=== PATIENT | female | born 1985 | race Caucasian/White ===

== ENCOUNTER → 2018-08-22 19:31 | Outpatient (REF) | payer OTHER, SELFPAY ==
[2018-08-22 19:59] LABS: Basophils # 0.1 K/mm3 (0-0.2); Basophils % 0.5 % (0.1-2.0); Eosinophils # 0.2 K/mm3 (0.0-0.4); Eosinophils % 1.9 % (0.1-12.0); Hematocrit 42.6 % (37.0-47.0); Hemoglobin 14.5 g/dL (12.2-16.2); Lymphocytes # 1.6 K/mm3 (0.7-4.5); Lymphocytes % 15.6 K/mm3 (10-50); Mean Corpuscular Volume 85.2 fl (81-99); Mean Platelet Volume 9.2 fl (7.4-10.4); Monocytes # 0.4 K/mm3 (0.1-1.0); Monocytes % 4.2 % (1.7-9.3); Neutrophils # 7.9 K/mm3 (1.8-7.8); Neutrophils % 77.8 % (37.0-80.0); Platelet Count 246 K/mm3 (142-424); Red Cell Distribution Width 12.3 % (11.5-17.5); White Blood Count 10.2 K/mm3 (4.8-10.8)
[2018-08-22 20:46] LABS: Alanine Aminotransferase 75 U/L (12-78); Albumin Level 4.7 gm/dL (3.4-5.0); Albumin/Globulin Ratio 1.5 (1.1-1.8); Alkaline Phosphatase 96 U/L (46-116); Anion Gap 18.7 mEq/L (5-15); Aspartate Amino Transferase 42 U/L (15-37); Bilirubin,Total 0.4 mg/dL (0.2-1.0); Blood Urea Nitrogen 21 mg/dL (7-18); Calcium 9.2 mg/dL (8.5-10.1); Carbon Dioxide 23 mmol/L (21.0-32.0); Chloride 101 mmol/L (98-107); Chol/HDL Ratio 3.1 (1-3.5); Cholesterol 217 mg/dL (140-200); Creatinine,Serum 0.67 mg/dL (0.55-1.02); Estimated Glomerular Filt Rate 103 ml/min (>60); GFR (African American) 125 ML/MIN (>60); Globulin 3.2 gm/dl (1.3-3.2); Glucose 58 mg/dL (74-106); HDL Cholesterol 71 mg/dL (29-89); LDL Cholesterol 128 mg/dL (0-130); Potassium 3.7 mmoL/L (3.5-5.1); Sodium 139 mmol/L (136-145); T4 (Thyroxine) 10.1 ug/dl (4.7-13.3); Thyroid Stimulating Hormone 0.88 uIU/ml (0.358-3.740); Total Protein,Serum 7.9 gm/dL (6.4-8.2); Triglycerides 92 mg/dL (30-200); VLDL Cholesterol 18 mg/dL (0-40)
[2018-08-22 20:58] LABS: Hemoglobin A1C 5.1 % (0.0-7.0)
[2018-08-25 09:27] LABS: Vitamin D 25 Hydroxy 36.7 ng/mL (30.0-100.0)
== END ==
LOC: LAB 19:31
PROVIDERS: PCP Physician Assistant; Visit Provider Physician Assistant
DX: Z86.32 Personal history of gestational diabetes (principal)
CPT/HCPCS: 80053; 80061; 82652; 83036; 84436; 84443; 85025

== ENCOUNTER → 2019-04-10 14:17 | Outpatient (CLI) | payer OTHER, SELFPAY ==
[2019-04-10 16:02] LABS: Alanine Aminotransferase 29 U/L (12-78); Albumin Level 4.4 gm/dL (3.4-5.0); Albumin/Globulin Ratio 1.4 (1.1-1.8); Alkaline Phosphatase 70 U/L (46-116); Anion Gap 16.8 mEq/L (5-15); Aspartate Amino Transferase 18 U/L (15-37); Bilirubin,Total 0.5 mg/dL (0.2-1.0); Blood Urea Nitrogen 16 mg/dL (7-18); Calcium 8.9 mg/dL (8.5-10.1); Carbon Dioxide 21 mmol/L (21.0-32.0); Chloride 106 mmol/L (98-107); Creatinine,Serum 0.68 mg/dL (0.55-1.02); Estimated Glomerular Filt Rate 101 ml/min (>60); GFR (African American) 122 ML/MIN (>60); Globulin 3.1 gm/dl (1.3-3.2); Glucose 81 mg/dL (74-106); HCG,Quantitative 0 mIU/mL; Potassium 3.8 mmoL/L (3.5-5.1); Sodium 140 mmol/L (136-145); Total Protein,Serum 7.5 gm/dL (6.4-8.2)
[2019-04-16 06:22] LABS: H. pylori Breath Test Negative (Negative)
== END ==
PROVIDERS: Visit Provider Nurse Practitioner Family
DX: R53.83 Other fatigue (principal); R10.9 Unspecified abdominal pain; R11.0 Nausea
CPT/HCPCS: 36415; 80053; 83013; 84702

== ENCOUNTER → 2019-12-16 16:56 | Outpatient (CLI) | payer MEDICAID, SELFPAY ==
[2019-12-16 17:58] LABS: Basophils # 0.1 K/mm3 (0-0.2); Eosinophils # 0.2 K/mm3 (0.0-0.4); Eosinophils % 2.4 % (0.1-12.0); Hemoglobin 14.3 g/dL (12.2-16.2); Lymphocytes # 1.8 K/mm3 (0.7-4.5); Lymphocytes % 24.9 % (10-50); Mean Corpuscular HGB Conc 34.1 g/dL (31.8-35.4); Mean Corpuscular Hemoglobin 29.5 pg (27.0-31.2); Mean Corpuscular Volume 86.6 fl (81-99); Mean Platelet Volume 9.8 fl (7.4-10.4); Monocytes # 0.4 K/mm3 (0.1-1.0); Monocytes % 4.8 % (1.7-9.3); Neutrophils # 4.8 K/mm3 (1.8-7.8); Platelet Count 180 K/mm3 (142-424); Red Blood Count 4.85 M/mm3 (4.20-5.40); Red Cell Distribution Width 12.3 % (11.5-17.5); White Blood Count 7.2 K/mm3 (4.8-10.8)
[2019-12-16 21:18] LABS: Chloride 104 mmol/L (98-107); Potassium 3.8 mmoL/L (3.5-5.1); Sodium 140 mmol/L (136-145)
[2019-12-16 21:20] LABS: Alanine Aminotransferase 15 U/L (12-78); Aspartate Amino Transferase 21 U/L (14-36); Blood Urea Nitrogen 12 mg/dl (7-17); Estimated Glomerular Filt Rate 98 ml/min (>60); GFR (African American) 118 ML/MIN (>60)
[2019-12-16 21:21] LABS: Albumin Level 4.5 g/dl (3.5-5.0); Albumin/Globulin Ratio 1.7 (1.1-1.8); Alkaline Phosphatase 53 U/L (38-126); Anion Gap 15.8 mEq/L (5-15); Bilirubin,Total 0.5 mg/dl (0.2-1.3); Calcium 9.4 mg/dl (8.4-10.2); Carbon Dioxide 24 mmol/L (22.0-30.0); Chol/HDL Ratio 2.9 (1-3.5); Cholesterol 165 mg/dl (140-200); Globulin 2.7 g/dL (1.3-3.2); Glucose 84 mg/dl (74-100); HDL Cholesterol 56 mg/dl (40-60); Total Protein,Serum 7.2 g/dl (6.3-8.2); Triglycerides 55 mg/dl (30-150); VLDL Cholesterol 11 mg/dL (0-40)
[2019-12-16 21:34] LABS: Direct LDL Cholesterol 103.22 mg/dL (100-129)
[2019-12-16 21:41] LABS: T4 (Thyroxine) 8.6 ug/dl (5.53-11.0)
[2019-12-16 21:54] LABS: Thyroid Stimulating Hormone 0.85 uIU/mL (0.465-4.68)
[2019-12-19 10:33] LABS: Vitamin D 25 Hydroxy 27.8 ng/mL (30.0-100.0)
== END ==
PROVIDERS: Visit Provider Physician Assistant
DX: F41.9 Anxiety disorder, unspecified (principal); E55.9 Vitamin D deficiency, unspecified
CPT/HCPCS: 80053; 80061; 82652; 84436; 84443; 85025

== ENCOUNTER 2020-11-24 16:18 | Emergency (ER) | payer MEDICAID, SELFPAY ==
[2020-11-24] VITALS (15 sets, daily range): BP systolic 106–149; BP diastolic 64–89; PULSE 51–88; RESP 16–19; TEMP 36.6–37; O2SAT 96–99; BMI 34.0
--- NOTE | 2020-11-24 16:51 | PC.NURSE ---
Pt clothing removed and belongings removed. Katie at bedside within arm's reach at this time
--- NOTE | 2020-11-24 16:53 | PC.NURSE ---
PT SITTING UP ON SIDE OF BED, ALERT AND TALKING
--- NOTE | 2020-11-24 16:58 | ECG_ITS ---
APPROVED REPORT Exam: Resting ECG HR:78 bpm ECG Measurements Heart Rate 78 AXES DC 140 P 50 QRSd 86 QRS 56 QT 398 T 36 QTc 453 Conclusion Normal sinus rhythm with sinus arrhythmia Normal ECG Electronically signed by : Alton Wilson, 11/25/2020 06:23:47
--- NOTE | 2020-11-24 17:07 | PC.NURSE ---
PT AWAKE. SITTING ON SIDE OF BED. ALERT AND TALKING.
--- NOTE | 2020-11-24 17:09 | HMH.EDPSYCH ---
ED Disposition Condition on Discharge: Good - Critical Care Critical Care Time: No <Omar Calderon - Last Filed: 11/24/20 19:24> <Ricardo Brady - Last Filed: 11/24/20 20:56> Clinical Impression: Suicidal ideation Disposition: Xfer Psychiatric Hosp Referrals: Laya Grant PA [Primary Care Provider] - Forms: Transfer Record - ED Attestation: On 11/24/20, the high probability of a clinically significant, sudden or life threatening deterioration of the following system(s) required my full and direct attention, intervention and personal management. The time I documented below is in addition to time spent performing reported procedures but includes the following listed in this critical care notation. Medical Decision Making - Medical Records Medical records reviewed: Yes: I reviewed the patient's medical records. - Tiburcio Inquiry Pt receiving controlled substance: No - Lab Data Result diagrams: 11/24/20 17:00 11/24/20 17:00 <Omar Calderon - Last Filed: 11/24/20 19:24> - Lab Data Result diagrams: 11/24/20 17:00 11/24/20 17:00 <Ricardo Brady - Last Filed: 11/24/20 20:56> Vital Signs: 11/24/20 16:29 11/24/20 16:52 11/24/20 17:22 Temperature 98 F 97.8 F 97.9 F Temperature Source Oral Oral Oral Pulse Rate [Right] 87 77 66 Respiratory Rate 16 19 19 Blood Pressure [Right Arm] 140/70 117/81 122/78 Blood Pressure Mean [Right Arm] 93 93 92 Blood Pressure Source [Right Arm] Automatic Cuff Automatic Cuff Automatic Cuff Blood Pressure Position [Right Arm] Sitting Sitting Sitting 02 Sat by Pulse Oximetry 98 99 98 Oxygen Delivery Method Room Air Room Air 11/24/20 17:35 11/24/20 18:04 11/24/20 18:26 Temperature 97.8 F 98.6 F Temperature Source Oral Oral Pulse Rate [Right] 77 78 57 L Respiratory Rate 18 18 Blood Pressure [Right Arm] 116/88 106/64 L 124/80 Blood Pressure Mean [Right Arm] 97 78 94 Blood Pressure Source [Right Arm] Automatic Cuff Automatic Cuff Automatic Cuff Blood Pressure Position [Right Arm] Sitting Sitting Sitting 02 Sat by Pulse Oximetry 98 98 99 Oxygen Delivery Method Room Air 11/24/20 18:30 11/24/20 19:00 11/24/20 19:30 Temperature Temperature Source Pulse Rate [Right] 51 L 60 62 Respiratory Rate 17 17 Blood Pressure [Right Arm] 133/76 133/76 111/65 Blood Pressure Mean [Right Arm] 95 95 80 Blood Pressure Source [Right Arm] Automatic Cuff Automatic Cuff Automatic Cuff Blood Pressure Position [Right Arm] Sitting Supine Supine 02 Sat by Pulse Oximetry 99 97 98 Oxygen Delivery Method Room Air Room Air Room Air 11/24/20 20:00 11/24/20 20:30 Temperature Temperature Source Pulse Rate [Right] 74 88 Respiratory Rate 17 17 Blood Pressure [Right Arm] 128/79 138/82 Blood Pressure Mean [Right Arm] 95 100 Blood Pressure Source [Right Arm] Automatic Cuff Automatic Cuff Blood Pressure Position [Right Arm] Supine Supine 02 Sat by Pulse Oximetry 96 99 Oxygen Delivery Method Room Air - Lab Data Lab Results 11/24/20 17:00: WBC 10.4, RBC 5.08, Hgb 15.1, Hct 43.9, MCV 86.4, MCH 29.7, MCHC 34.4, RDW 12.9, Plt Count 258, MPV 9.3, Neut % (Auto) 77.3, Lymph % (Auto) 16.5, [place] % (Auto) 3.9, Eos % (Auto) 1.7, Baso % (Auto) 0.6, Neut # (Auto) 8.0 H, Lymph # (Auto) 1.7, [place] # (Auto) 0.4, Eos # (Auto) 0.2, Baso # (Auto) 0.1 11/24/20 17:00: Sodium 142, Potassium 3.7, Chloride 105, Carbon Dioxide 26, Anion Gap 14.7, BUN 14, Creatinine 0.60, Estimated Creat Clear 173, Estimated GFR 116, Est GFR ( Amer) 140, Glucose 109 H, Calcium 9.8, Total Bilirubin 0.4, AST 41 H, ALT 35, Alkaline Phosphatase 69, Total Protein 8.8 H, Albumin 5.1 H, Globulin 3.7 H, Albumin/Globulin Ratio 1.4, Acetaminophen < 10 L 11/24/20 17:00: Plasma/Serum Alcohol < 10 11/24/20 17:00: SARS-CoV-2 IgG Ab (Rapid) Negative, SARS-CoV-2 IgM Ab (Rapid) Negative 11/24/20 17:30: Urine Color Yellow, Urine Appearance Sl cloudy, Urine pH 6.0, Ur Specific Clifford >= 1.030, Urine Protein Negative, Uri
--- NOTE | 2020-11-24 17:11 | PC.NURSE ---
DOCTOR AT BEDSIDE
[2020-11-24 17:22] LABS: Basophils # 0.1 K/mm3 (0-0.2); Basophils % 0.6 % (0.1-2.0); Eosinophils # 0.2 K/mm3 (0.0-0.4); Eosinophils % 1.7 % (0.1-12.0); Hematocrit 43.9 % (37.0-47.0); Hemoglobin 15.1 g/dL (12.2-16.2); Lymphocytes # 1.7 K/mm3 (0.7-4.5); Lymphocytes % 16.5 % (10-50); Mean Corpuscular HGB Conc 34.4 g/dL (31.8-35.4); Mean Corpuscular Hemoglobin 29.7 pg (27.0-31.2); Mean Corpuscular Volume 86.4 fl (81-99); Mean Platelet Volume 9.3 fl (7.4-10.4); Monocytes # 0.4 K/mm3 (0.1-1.0); Monocytes % 3.9 % (1.7-9.3); Neutrophils % 77.3 % (37.0-80.0); Platelet Count 258 K/mm3 (142-424); Red Blood Count 5.08 M/mm3 (4.20-5.40); Red Cell Distribution Width 12.9 % (11.5-17.5); White Blood Count 10.4 K/mm3 (4.8-10.8)
[2020-11-24 17:24] LABS: Chloride 105 mmol/L (98-107)
[2020-11-24 17:25] LABS: Potassium 3.7 mmoL/L (3.5-5.1); Sodium 142 mmol/L (136-145)
[2020-11-24 17:27] LABS: Alanine Aminotransferase 35 U/L (12-78); Aspartate Amino Transferase 41 U/L (14-36); Blood Urea Nitrogen 14 mg/dl (7-17); Creatinine Clearance Estimated 173 mL/min (50-200); Estimated Glomerular Filt Rate 116 ml/min (>60); GFR (African American) 140 ML/MIN (>60)
[2020-11-24 17:28] LABS: Albumin Level 5.1 g/dl (3.5-5.0); Albumin/Globulin Ratio 1.4 (1.1-1.8); Alkaline Phosphatase 69 U/L (38-126); Anion Gap 14.7 mEq/L (5-15); Bilirubin,Total 0.4 mg/dl (0.2-1.3); Calcium 9.8 mg/dl (8.4-10.2); Carbon Dioxide 26 mmol/L (22.0-30.0); Ethyl Alcohol < 10 mg/dl (0-10); Globulin 3.7 g/dL (1.3-3.2); Glucose 109 mg/dl (74-100); Total Protein,Serum 8.8 g/dl (6.3-8.2)
[2020-11-24 17:29] LABS: Acetaminophen < 10 ug/ml (10-30)
[2020-11-24 17:31] LABS: Microscopic, Urine URINE MICROSCOPIC (MICROSCOPIC)
[2020-11-24 17:34] LABS: Appearance,Urine SL CLOUDY (Clear); Bilirubin,Urine Negative (Negative); Blood, Urine TRACE-I (Negative); Color,Urine YELLOW (Yellow); Glucose,Urine (UA) Negative (Negative); Ketones,Urine Negative (Negative); Leukocyte Esterase,Urine Negative (Negative); Nitrate,Urine Negative (Negative); Protein,Urine Negative (Negative); Specific Gravity, Urine >= 1.030 (1.005-1.030); Urobilinogen,Urine 0.2 EU/dl (0.2)
--- NOTE | 2020-11-24 17:34 | PC.NURSE ---
PT SITTING UP AT BEDSIDE ON PHONE. AWAKE AND TALKING.
[2020-11-24 17:36] LABS: Urine Pregnancy, HCG Qual. Negative (Negative)
[2020-11-24 17:49] LABS: Coronavirus 19 IgG Antibody Negative (Negative); Coronavirus 19 IgM Antibody Negative (Negative)
--- NOTE | 2020-11-24 17:53 | PC.NURSE ---
spoke with [facility] , they are not doing Z[facility] right now so her records were faxed to [facility] they said we would get a return call within 30 min
--- NOTE | 2020-11-24 17:54 | PC.NURSE ---
PT SITTING UP ON PHONE, PLAYING GAME
[2020-11-24 17:55] LABS: Bacteria,Urine 2+ /lpf
[2020-11-24 18:10] LABS: Amphetamine/Metha Screen,Urine Negative ng/ml (<1000)
[2020-11-24 18:11] LABS: Barbiturates Screen,Urine Negative ng/ml (<200)
[2020-11-24 18:12] LABS: Benzodiazepines Screen,Urine Negative ng/ml (<200); Cannabinoid Screen,Urine Positive ng/ml (<50)
[2020-11-24 18:13] LABS: Cocaine Screen,Urine Negative ng/ml (<300)
[2020-11-24 18:14] LABS: Methadone Screen,Urine Negative ng/ml (<300); Opiate Screen,Urine Negative ng/ml (<300)
[2020-11-24 18:15] LABS: Phencyclidine Screen,Urine Negative ng/ml (<25)
--- NOTE | 2020-11-24 18:56 | PC.NURSE ---
Patient sleeping at this time. Care will be turned over to overnight associate for one-on-one.
--- NOTE | 2020-11-24 19:09 | PC.NURSE ---
report given. patient is resting at this time
--- NOTE | 2020-11-24 20:11 | PC.NURSE ---
spoke with Mindy from the [facility] and stated them are reviewing pt chart now
--- NOTE | 2020-11-24 20:15 | PC.NURSE ---
patient sitting up in bed. Patient is calm and non disruptive.
--- NOTE | 2020-11-24 20:19 | PC.NURSE ---
[facility] called from [facility] and said pt is accepted
--- NOTE | 2020-11-24 20:47 | PC.NURSE ---
patient took her night time hydroxyzine pamoate 25mg at this time. Leni Bay RN confirmed patient medications. Place one tab in dispense cup and gave to patient. watched patient swallow her pill. patient is currently sitting up awaiting on her mother to get here to take her to [facility].
--- NOTE | 2020-11-24 21:43 | PC.NURSE ---
patient is eating chips and crackers at this time
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
--- NOTE | 2020-11-24 22:15 | PC.NURSE ---
called to let [facility] know that the patient had left facility and was in route to their facility
== END 2020-11-24 22:22 ==
PROVIDERS: Emergency Provider Emergency Medicine; PCP Physician Assistant
DX: R45.851 Suicidal ideations (principal); F41.8 Other specified anxiety disorders; Z87.891 Personal history of nicotine dependence; F12.10 Cannabis abuse, uncomplicated; Z01.84 Encounter for antibody response examination
CPT/HCPCS: 80053; 80305; 80329; 81001; 81025; 85025; 86328; 87086; 93005; 99284

== ENCOUNTER 2021-06-23 17:15 | Emergency (ER) | payer MEDICAID, SELFPAY ==
[2021-06-23 19:15] VITALS: BP 137/80; PULSE 79; RESP 18; TEMP 36.7; O2SAT 97; BMI 35.9
--- NOTE | 2021-06-23 20:03 | HMH.EDUTC ---
[facility] [place] Clinical Impression: Encounter for laboratory testing for COVID-19 virus Disposition: Home, Self-Care Condition on Discharge: Good Instructions: DI for COVID-19 (Suspected or Confirmed ), Coronavirus Disease 2019, Preventing the Spread of Coronavirus Discharge Instructions Additional Instructions: *Monitor Temp, Over the counter Motrin or Tylenol as directed/as needed Tylenol every 4 hours and Motrin every 6 hours (as long as your family doctor has told you that you can take it) for fever or pain. and straight to ER if unable to lower temp less than 101.0 after medication given Follow up IMMEDIATELY for new or worsening symptoms or no Noticeable improvement over the next 48-72 hours. 911 for difficulty breathing or swallowing You were tested for today for COVID19 your test result should be back in the next 24-48 hours, you may call to the [facility] to see if your test results are back in the next 48 hours [phone] [facility] hours are 9am-9pm You was given a handout with instructions for Self Quarantine and Self isolation for while you wait on test results and what to do if they are positive If you are positive the Health Dept will be contacting you also Make sure to take your Vitamins Vit. C Vit D and Zinc if you can take them Referrals: Laya Grant PA [Primary Care Provider] - As needed Forms: Work/School Release Time of Disposition: 20:04 Medical Decision Making - Tiburcio Inquiry Pt receiving controlled substance: No Tiburcio was queried for this patient: No Vital Signs: 06/23/21 19:15 Temperature 98.1 F Temperature Source Oral Pulse Rate [Right] 79 Respiratory Rate 18 Blood Pressure [Right Arm] 137/80 Blood Pressure Mean [Right Arm] 99 02 Sat by Pulse Oximetry 97 Oxygen Delivery Method Room Air Orders (Tests/Meds): ORDERS Category Date Time Status Covid-19 Nasal PCR ([facility]) Routine Lab 06/23/21 19:32 Received [facility] HPI - General Stated complaint: covid test Time Seen by Provider: 06/23/21 20:03 Mode of Arrival: Family Vehicle Source of Information: Patient Limitations: No Limitations Description of Symptoms (Recalled from Triage Doc. by RN): Patient reports she is here for COVID swab after her son was exposed at daycare. Patient denies any symptoms HEENT Symptoms (Recalled from RN notes): No Resp Symptoms (Recalled from RN notes): No Skin Symptoms (Recalled from RN notes): No MS Symptoms (Recalled from RN notes): No Functional Status (Recalled from RN notes): na - History of Present Illness Provider Complaint: Patient states that her son was recently exposed to someone with COVID state that she is not having any symptoms but son has been running a fever so she wanted to get tested - Related Data Home Medications Medication Instructions Recorded Confirmed etonogestrel 68 mg subdermal 0 % SUBDERMAL ONCE 11/05/20 05/25/21 implant Previous Rx's Medication Instructions Recorded fluoxetine 40 mg capsule See Rx Instructions .ROUTE 05/25/21 .COMPLEX #90 cap hydroxyzine pamoate 50 mg capsule 50 mg PO BID #180 cap 05/25/21 ketoconazole 2 % topical cream 1 applic TOPICAL BID #60 g 05/25/21 terbinafine HCl 250 mg tablet 250 mg PO DAILY #30 tab 05/25/21 buspirone 10 mg tablet 10 mg PO BID #60 tab 06/02/21 Allergies Allergy/AdvReac Type Severity Reaction Status Date / Time No Known Allergies Allergy Verified 05/25/21 10:50 - Worker's Comp Is this a Worker's Comp case?: No Is this an [facility] Worker's Comp?: No Is this a Asim Worker's Comp?: No H History - Hepatitis A Screen Drug use history?: No High risk sexual behaviors?: No History of sexually transmitted infection?: No Currently employed?: No Childcare worker?: No Do you have indoor plumbing?: Yes Do you have electricity?: Yes Attestation statement:: This patient has been screened for Hepatitis A risk factors. I have reviewed the patient's past medical history: Yes Medical History: Repor
[2021-06-23 20:36] VITALS: BP 132/74; PULSE 78; RESP 16; TEMP 36.6; O2SAT 98
== END 2021-06-23 20:38 | disposition home or self-care (01) ==
PROVIDERS: Emergency Provider Nurse Practitioner; PCP Physician Assistant
DX: Z20.822 Contact with and (suspected) exposure to COVID-19 (principal); F41.8 Other specified anxiety disorders; Z87.891 Personal history of nicotine dependence
CPT/HCPCS: 99202; G0463; U0003

== ENCOUNTER → 2022-03-16 13:12 | Outpatient (CLI) | payer MEDICAID, SELFPAY ==
[2022-03-16 17:46] LABS: Basophils # 0.1 K/mm3 (0-0.2); Basophils % 1.6 % (0.1-2.0); Eosinophils # 0.1 K/mm3 (0.0-0.4); Eosinophils % 2.1 % (0.1-12.0); Hematocrit 42.6 % (37.0-47.0); Hemoglobin 14.6 g/dL (12.2-16.2); Lymphocytes # 1.4 K/mm3 (0.7-4.5); Lymphocytes % 22.4 % (10-50); Mean Corpuscular HGB Conc 34.4 g/dL (31.8-35.4); Mean Corpuscular Volume 87.3 fl (81-99); Monocytes # 0.3 K/mm3 (0.1-1.0); Monocytes % 5.1 % (1.7-9.3); Neutrophils # 4.3 K/mm3 (1.8-7.8); Neutrophils % 68.8 % (37.0-80.0); Platelet Count 267 K/mm3 (142-424); Red Blood Count 4.88 M/mm3 (4.20-5.40); Red Cell Distribution Width 12.9 % (11.5-17.5); White Blood Count 6.2 K/mm3 (4.8-10.8)
[2022-03-16 17:53] LABS: Alanine Aminotransferase 30 U/L (12-78); Albumin Level 4.4 g/dl (3.5-5.0); Albumin/Globulin Ratio 1.8 (1.1-1.8); Alkaline Phosphatase 54 U/L (38-126); Anion Gap 15.8 mEq/L (5-15); Aspartate Amino Transferase 29 U/L (14-36); Bilirubin,Total 0.2 mg/dl (0.2-1.3); Blood Urea Nitrogen 8 mg/dl (7-17); Calcium 9.2 mg/dl (8.4-10.2); Carbon Dioxide 24 mmol/L (22.0-30.0); Chloride 106 mmol/L (98-107); Chol/HDL Ratio 3.7 (1-3.5); Cholesterol 191 mg/dl (140-200); Estimated Glomerular Filt Rate 96 ml/min (>60); GFR (African American) 116 ML/MIN (>60); Globulin 2.5 g/dL (1.3-3.2); Glucose 108 mg/dl (74-100); HDL Cholesterol 52 mg/dl (40-60); Potassium 3.8 mmoL/L (3.5-5.1); Sodium 142 mmol/L (136-145); Total Protein,Serum 6.9 g/dl (6.3-8.2); Triglycerides 164 mg/dl (30-150); VLDL Cholesterol 33 mg/dL (0-40)
[2022-03-16 18:11] LABS: 25-OH Vitamin D, Total 37.3 ng/mL (30-100)
[2022-03-16 18:24] LABS: Thyroid Stimulating Hormone 1.44 uIU/mL (0.465-4.68)
[2022-03-16 18:43] LABS: Vitamin B12 392 pg/mL (239-931)
[2022-03-16 18:48] LABS: Hemoglobin A1C 5.1 % (4.0-6.0)
== END ==
PROVIDERS: PCP Physician Assistant; Visit Provider Physician Assistant
DX: E66.09 Other obesity due to excess calories (principal); Z68.37 Body mass index [BMI] 37.0-37.9, adult; Z79.899 Other long term (current) drug therapy; Z86.32 Personal history of gestational diabetes
CPT/HCPCS: 80053; 80061; 82306; 82607; 83036; 84443; 85025

== ENCOUNTER 2022-05-06 16:17 | Emergency (ER) | payer MEDICAID, SELFPAY ==
[2022-05-06 16:25] VITALS: BP 137/82; PULSE 52; RESP 18; TEMP 36.7; O2SAT 96; BMI 34.7
--- NOTE | 2022-05-06 16:34 | HMH.EDUTC ---
[facility] Disposition Clinical Impression: Upper respiratory infection Qualifiers: URI type: unspecified viral URI Qualified Code(s): J06.9 - Acute upper respiratory infection, unspecified Disposition: Home, Self-Care Condition on Discharge: Good Instructions: DI for Viral Upper Respiratory Infection -- Adult Additional Instructions: Strep test was negative. You have been tested for COVID19. Please isolate yourself as if you are positive until those test results received. Referrals: Laya Grant PA [Primary Care Provider] - Time of Disposition: 17:34 Medical Decision Making - Medical Records Medical records reviewed: Yes: I reviewed the patient's medical records. - Tiburcio Inquiry Pt receiving controlled substance: No Vital Signs: 05/06/22 16:25 Temperature 98.1 F Temperature Source Oral Pulse Rate [Right Brachial] 52 L Respiratory Rate 18 Blood Pressure [Right Arm] 137/82 Blood Pressure Mean [Right Arm] 100 Blood Pressure Source [Right Arm] Automatic Cuff Blood Pressure Position [Right Arm] Sitting 02 Sat by Pulse Oximetry 96 Oxygen Delivery Method Room Air - Lab Data Lab results reviewed: Yes: I reviewed the patient's lab results. Lab Results 05/06/22 16:30: Group A Strep Rapid Negative Orders (Tests/Meds): ORDERS Category Date Time Status Full Resp Panel w/COVID ([facility]) Routine Lab 05/06/22 16:58 Received Strep Screen Confirmation Stat Micro 05/06/22 16:30 Received [facility] HPI - General Stated complaint: sore throat, cough, BARCENAS weak Time Seen by Provider: 05/06/22 16:34 - History of Present Illness Provider Complaint: Sore throat, headache, itchy eyes, runny nose, cough X 2-3 days. No fever. No vomiting or diarrhea. Onset (ago): day(s) (2) Relieving factors: none Exacerbating factors: none Associated symptoms: denies other symptoms Treatments prior to arrival: none - Related Data Home Medications Medication Instructions Recorded Confirmed hydrOXYzine pamoate [Hydroxyzine 50 mg PO BID 05/06/22 05/06/22 Pamoate] Allergies Allergy/AdvReac Type Severity Reaction Status Date / Time No Known Allergies Allergy Verified 03/16/22 12:57 [facility] History - Hepatitis A Screen Attestation statement:: This patient has been screened for Hepatitis A risk factors. I have reviewed the patient's past medical history: Yes Medical History: Reports:: Anxiety, Depression Other Surgeries: Yes: No Previous Surgery Amputation: No Fractures: No - Social History Smoking Status: Former smoker Tobacco Type: cigarettes # Packs/Day (cigarettes): 1 Alcohol Intake: current Alcohol Intake Frequency:: holidays/special occasions only Substance Use Type: marijuana, former substance user Occupational Status: employed - Psychiatric History Pschychiatric History:: Reports:: Anxiety, Depression Family Hx:: No significant family history ROS Obtained: Yes All systems reviewed & no additional complaints - Constitutional Constitutional: Reports headache(s), Reports malaise - ENT Ears, Nose, Mouth, and Throat: Reports headache(s), Reports nasal congestion, Reports sore throat - Respiratory Respiratory: Reports cough Physical Exam - General General appearance: alert, in no apparent distress - Head Head exam: normocephalic - Eye Eye exam: Present: PERRL - ENT ENT exam: Present: normal oropharynx, TM's normal bilaterally - Neck Neck exam: Present: normal inspection. Absent: lymphadenopathy - Chest Chest inspection: Present: normal inspection, symmetric chest wall rise - Respiratory Respiratory exam: Present: normal lung sounds bilaterally - Cardiovascular Cardiovascular exam: Present: regular rate, normal rhythm - Neurological Exam Neurological exam: Present: alert, oriented X3 - Psychiatric Psychiatric exam: Present: normal affect, normal mood - Skin Skin exam: Present: warm, dry, intact
[2022-05-06 17:13] LABS: Adenovirus,PCR Not Detected (NotDetected); Bordetella Pertussis Not Detected (NotDetected); Chlamydophila Pneumoniae, PCR Not Detected (NotDetected); Coronavirus 229E Not Detected (NotDetected); Coronavirus NL63 Not Detected (NotDetected); Coronavirus OC43 Not Detected (NotDetected); Coronovirus HKU1,PCR Not Detected (NotDetected); Human Metapneumovirus Not Detected (NotDetected); Influenza A, PCR Not Detected (NotDetected); Influenza AH1, 2009 Not Detected (NotDetected); Influenza AH1, PCR Not Detected (NotDetected); Influenza AH3,PCR Not Detected (NotDetected); Influenza B, PCR Not Detected (NotDetected); Mycoplasma Pneumoniae, PCR Not Detected (NotDetected); Parainfluenza 1, PCR Not Detected (NotDetected); Parainfluenza 2, PCR Not Detected (NotDetected); Parainfluenza 3, PCR Not Detected (NotDetected); Parainfluenza 4, PCR Not Detected (NotDetected); Respiratory Syncytial Virus Not Detected (NotDetected); Rhinovirus/Enterovirus Not Detected (NotDetected)
[2022-05-06 17:31] LABS: Strep Scrn Group A (Rapid) Negative (Negative)
[2022-05-06 17:50] VITALS: BP 137/82; PULSE 52; RESP 18; TEMP 36.7; O2SAT 96
[2022-05-06 19:03] LABS: Coronavirus 19, PCR Detected (NotDetected)
== END 2022-05-06 17:54 | disposition home or self-care (01) ==
PROVIDERS: Emergency Provider Physician Assistant; PCP Physician Assistant
DX: J06.9 Acute upper respiratory infection, unspecified (principal); Z87.891 Personal history of nicotine dependence; R07.0 Pain in throat; R05.9 Cough, unspecified; R51.9 Headache, unspecified; R53.1 Weakness; H57.89 Other specified disorders of eye and adnexa; R09.81 Nasal congestion; F41.9 Anxiety disorder, unspecified; F32.A Depression, unspecified
CPT/HCPCS: 87430; 87581; 87632; 87798; 99212; C9803; G0463; U0003; U0005

== ENCOUNTER 2022-07-18 07:24 | Emergency (ER) | payer MEDICAID, SELFPAY ==
[2022-07-18 07:24] VITALS: BP 123/85; PULSE 71; RESP 16; TEMP 37.1; O2SAT 97; BMI 33.2
--- NOTE | 2022-07-18 07:35 | XR_ITS ---
FINAL REPORT TECHNIQUE: Chest PA & Lateral CLINICAL HISTORY: cough, congestion FINDINGS: 2 views of the chest were performed. The heart size is normal. The mediastinum is within normal limits. There is no acute cardiopulmonary process. There are no pleural effusions. There is no pneumothorax. The bony thorax appears intact. IMPRESSION: No acute cardiopulmonary process. Reviewed, Interpreted and Dictated by Freddie Givens MD Transcribed by Sacha Echevarria Authenticated and . [facility]
[2022-07-18 07:41] LABS: Coronavirus 19, PCR Not Detected (NotDetected); Influenza A, PCR Not Detected (NotDetected); Influenza B, PCR Not Detected (NotDetected)
[2022-07-18 08:00] VITALS: BP 112/65; BP 127/73; PULSE 59; PULSE 78; RESP 16; RESP 20; TEMP 36.6; O2SAT 97; O2SAT 98
[2022-07-18 08:31] VITALS: BP 114/59; PULSE 64; RESP 18; O2SAT 97
--- NOTE | 2022-07-18 08:42 | HMH.EDGENADL ---
Discharge Plan Disposition Patient Disposition: Home, Self-Care Condition: Good Prescriptions Prescriptions: New cefdinir 300 mg capsule 300 mg PO BID 10 Days Qty: 20 0RF prednisone 20 mg tablet 20 mg PO BID Qty: 10 0RF albuterol sulfate 90 mcg/actuation HFA aerosol inhaler 1 - 2 puff inhalation Q6H PRN (Reason: Wheezing) Qty: 1 0RF benzonatate 100 mg capsule 100 mg PO TID PRN (Reason: Cough) Qty: 10 0RF No Action buspirone 10 mg tablet 10 mg PO BID Qty: 60 0RF hydroxyzine pamoate 50 mg capsule 50 mg PO BID Qty: 180 3RF Referrals Follow up/Referrals: Laya Grant PA [Primary Care Provider] - See instructions Activity Restrictions/Add. Instructions Additional Instructions/Restrictions: Cefdinir and prednisone as prescribed. Use albuterol inhaler for wheezing or shortness of breath. Tessalon Perles as needed for cough. Follow-up with primary care provider if not improving in 2 to 3 days. Clinical Impressions Clinical Impression: Acute bronchitis with bronchospasm Discharge ED Provider: Edy Miller General Adult HPI General Chief complaint: Upper Respiratory Infection Stated complaint: Cough with drainage, sore throat, BARCENAS Time Seen by Provider: 07/18/22 08:40 Mode of Arrival: Ambulatory Source of Information: Patient Limitations: No Limitations Description of Symptoms (Recalled from ER Triage Doc. by RN): to ed per pvt car with c/o cough with green sputum nasal drainage x 2 days. History of Present Illness HPI narrative: 2-day history of yellow rhinorrhea, cough with yellow-green sputum, noisy breathing which she describes as crepe-y . She had COVID 5 months ago. She is a smoker. She does not have asthma or COPD. Related Data Previous Rx's Medication Instructions Recorded buspirone 10 mg tablet 10 mg PO BID #60 tabs 06/14/22 hydroxyzine pamoate 50 mg capsule 50 mg PO BID . #180 caps 07/14/22 albuterol sulfate 90 mcg/actuation 1 - 2 puff inhalation Q6H PRN 07/18/22 aerosol inhaler Wheezing #1 ea benzonatate 100 mg capsule 100 mg PO TID PRN Cough #10 caps 07/18/22 cefdinir 300 mg capsule 300 mg PO BID 10 days #20 caps 07/18/22 prednisone 20 mg tablet 20 mg PO BID #10 tabs 07/18/22 Allergies Allergy/AdvReac Type Severity Reaction Status Date / Time No Known Allergies Allergy Verified 03/16/22 12:57 [facility] Medical History (Updated 07/18/22 @ 08:54 by Edy Miller MD) Anxiety Depression History of gestational diabetes Obesity Social History Smoking Status: Current every day smoker tobacco type: cigarettes packs per day: 1 alcohol intake: current substance use type: former substance user and marijuana current occupational status: employed Travel in the last 8 weeks: None ROS Obtained: Yes Systems reviewed as appropriate & no additional complaints except as documented Constitutional Constitutional: Denies fever(s) ENT Ears, Nose, Mouth, and Throat: Reports nasal discharge Cardiovascular Cardiovascular: Denies chest pain Respiratory Respiratory: Reports cough, Reports cough with sputum production and Reports wheezing Allergic/Immunologic Allergic/Immunologic: Reports wheezing Physical Exam General General appearance: alert and in no apparent distress Head Head exam: atraumatic and normocephalic Eye Eye exam: Present normal appearance and EOMI ENT ENT exam: Present normal oropharynx, mucous membranes moist and TM's normal bilaterally Neck Neck exam: Present normal inspection and trachea midline Chest Chest inspection: Present normal inspection and symmetric chest wall rise Respiratory Respiratory exam: Present wheezes and other (Rhonchi bilateral); Absent respiratory distress Cardiovascular Cardiovascular exam: Present regular rate, normal rhythm and normal heart sounds Neurological Exam Neurological exam: Present alert and oriented X3 Psychiatric Psychiatric exam: Present normal affect and normal mood Skin
== END 2022-07-18 09:10 | disposition home or self-care (01) ==
PROVIDERS: Emergency Medicine; Emergency Provider Emergency Medicine; PCP Physician Assistant
DX: J20.9 Acute bronchitis, unspecified (principal); Z79.899 Other long term (current) drug therapy; F41.9 Anxiety disorder, unspecified; F32.A Depression, unspecified; E66.9 Obesity, unspecified; Z68.33 Body mass index [BMI] 33.0-33.9, adult; Z72.0 Tobacco use; F12.11 Cannabis abuse, in remission; F19.11 Other psychoactive substance abuse, in remission
CPT/HCPCS: 71046; 99283; C9803; U0003; U0005

== ENCOUNTER 2022-09-09 13:56 | Emergency (ER) | payer MEDICAID, SELFPAY ==
[2022-09-09] VITALS (10 sets, daily range): BP systolic 112–133; BP diastolic 54–85; PULSE 61–83; RESP 13–19; TEMP 36.6–37; O2SAT 95–100; BMI 32.1
--- NOTE | 2022-09-09 13:54 | ECG_ITS ---
APPROVED REPORT Exam: Resting ECG HR:61 bpm ECG Measurements Heart Rate 61 AXES QRSd 87 QRS 57 QT 408 T 47 QTc 410 Conclusion ATRIAL FIBRILLATION MODERATE ST DEPRESSION [0.05+ mV ST DEPRESSION] ABNORMAL ECG UNCONFIRMED REPORT Electronically signed by : Alton Wilson MD 09/11/2022 21:12:51
--- NOTE | 2022-09-09 14:54 | XR_ITS ---
PROCEDURE INFORMATION: Exam: XR Chest Exam date and time: 09/09/2022 3:10 PM Age: 36 years old Clinical indication: Shortness of breath; Patient HX: SOA TECHNIQUE: Imaging protocol: Radiologic exam of the chest. Views: 1 view. COMPARISON: CR XR CHEST 2V 07/18/2022 7:40 AM FINDINGS: Lungs: No evidence of pneumonia or interstitial edema. Pleural spaces: Unremarkable. No pleural effusion. No pneumothorax. Heart/Mediastinum: Unremarkable. No cardiomegaly. Bones/joints: Unremarkable. IMPRESSION: No evidence of pneumonia or interstitial edema.
--- NOTE | 2022-09-09 15:01 | PC.NURSE ---
ROUNDED ON PT, COVID/FLU SWAB COLLECTED. NO NEEDS VOICED
[2022-09-09 15:04] LABS: Coronavirus 19, PCR Not Detected (NotDetected); Influenza B, PCR Not Detected (NotDetected)
[2022-09-09 16:30] LABS: Influenza A, PCR Detected (NotDetected)
--- NOTE | 2022-09-09 16:41 | HMH.EDGENADL ---
Discharge Plan Disposition Patient Disposition: Home, Self-Care Prescriptions Prescriptions: No Action buspirone 10 mg tablet 10 mg PO BID Qty: 60 0RF hydroxyzine pamoate 50 mg capsule 50 mg PO BID Qty: 180 3RF cefdinir 300 mg capsule 300 mg PO BID 10 Days Qty: 20 0RF prednisone 20 mg tablet 20 mg PO BID Qty: 10 0RF albuterol sulfate 90 mcg/actuation HFA aerosol inhaler 1 - 2 puff inhalation Q6H PRN (Reason: Wheezing) Qty: 1 0RF benzonatate 100 mg capsule 100 mg PO TID PRN (Reason: Cough) Qty: 10 0RF Referrals Follow up/Referrals: Laya Grant PA [Primary Care Provider] - See instructions Clinical Impressions Clinical Impression: Influenza Instructions Patient Instructions: DI for Influenza -- Adult Discharge ED Provider: Alex Sampson General Adult HPI General Chief complaint: Upper Respiratory Infection Stated complaint: CP Time Seen by Provider: 09/09/22 14:05 Mode of Arrival: Ambulatory Limitations: No Limitations Description of Symptoms (Recalled from ER Triage Doc. by RN): PT REPORTS FATIGUE X 1 WEEK. COUGH AND SORE THROAT. PAIN WITH BREATHING IN BACK AND LEFT SIDE History of Present Illness HPI narrative: Patient is a 36-year-old female with past medical history of recent diagnosis of bronchitis, depression who presents with concern for fatigue. She says that her kids were diagnosed with strep throat last weekend they subsequently recovered. She says that she has now had fatigue for approximately 1 week but also has had a sore throat as well as a cough. She says that she also has some back pain when she takes a deep breath on the left side. She denies any abdominal pain. No history of blood clot. No vomiting, nausea, diarrhea, constipation. Related Data Previous Rx's Medication Instructions Recorded buspirone 10 mg tablet 10 mg PO BID #60 tabs 06/14/22 hydroxyzine pamoate 50 mg capsule 50 mg PO BID . #180 caps 07/14/22 albuterol sulfate 90 mcg/actuation 1 - 2 puff inhalation Q6H PRN 07/18/22 aerosol inhaler Wheezing #1 ea benzonatate 100 mg capsule 100 mg PO TID PRN Cough #10 caps 07/18/22 cefdinir 300 mg capsule 300 mg PO BID 10 days #20 caps 07/18/22 prednisone 20 mg tablet 20 mg PO BID #10 tabs 07/18/22 Allergies Allergy/AdvReac Type Severity Reaction Status Date / Time No Known Allergies Allergy Verified 03/16/22 12:57 [facility] Medical History (Updated 09/09/22 @ 17:43 by Alex Sampson MD) Anxiety Depression History of gestational diabetes Obesity Family History (Updated 09/09/22 @ 15:42 by Freda Powers, RN) Other No significant family history Social History (Updated 09/09/22 @ 15:42 by Freda Powers RN) Smoking Status: Current every day smoker tobacco type: cigarettes packs per day: 1 alcohol intake: current substance use type: former substance user and marijuana current occupational status: employed Travel in the last 8 weeks: None ROS Obtained: Yes All systems reviewed & no additional complaints except as documented A 14 point review of system was obtained and otherwise negative except per HPI Physical Exam General General appearance: alert and in no apparent distress Head Head exam: atraumatic, normocephalic and normal inspection Eye Eye exam: Present normal appearance, PERRL and EOMI ENT ENT exam: Present normal exam, normal oropharynx, mucous membranes moist, TM's normal bilaterally and normal external ear exam Neck Neck exam: Present normal inspection, full ROM and trachea midline; Absent meningismus or lymphadenopathy Chest Chest inspection: Present normal inspection and symmetric chest wall rise; Absent tenderness Respiratory Respiratory exam: Present normal lung sounds bilaterally; Absent respiratory distress Cardiovascular Cardiovascular exam: Present regular rate and normal rhythm; Absent JVD Abdominal Exam Abdominal exam: Present soft and normal bowel sounds; Absent diste
--- NOTE | 2022-09-09 17:31 | PC.NURSE ---
ROUNDED ON PT AT THIS TIME, PT AWARE ED MD IS WITH EMERGENCY AT THIS TIME. PT V/U NO NEEDS AT THIS TIME.
== END 2022-09-09 17:52 | disposition home or self-care (01) ==
PROVIDERS: Emergency Provider Student in an Organized Health Care Education/Training Program; PCP Physician Assistant
DX: J10.1 Influenza due to other identified influenza virus with other respiratory manifestations (principal); Z79.899 Other long term (current) drug therapy; F41.9 Anxiety disorder, unspecified; F32.A Depression, unspecified; E66.9 Obesity, unspecified; F12.11 Cannabis abuse, in remission; F19.11 Other psychoactive substance abuse, in remission
CPT/HCPCS: 71045; 93005; 99283; C9803; U0003; U0005

== ENCOUNTER 2022-12-31 12:28 | Emergency (ER) | payer MEDICAID, SELFPAY ==
[2022-12-31 13:30] VITALS: BP 114/76; PULSE 71; RESP 20; TEMP 36.7; O2SAT 99; BMI 32.5
--- NOTE | 2022-12-31 14:12 | EXP.UTC ---
Discharge Plan Disposition Patient Disposition: Home, Self-Care Condition: Good Prescriptions Prescriptions: New amoxicillin 500 mg capsule 500 mg PO TID 10 Days Qty: 30 0RF fluticasone propionate [Flonase Allergy Relief] 50 mcg/actuation spray,suspension 1 spray intranasal DAILY Qty: 16 0RF Rx Instructions: administer into each nostril No Action permethrin [Elimite] 5 % cream 1 applic topical Q14D Qty: 60 0RF Rx Instructions: apply second treatment 14 days after first treatment if live lice remain duloxetine [Cymbalta] 30 mg capsule,delayed release(DR/EC) 30 mg PO DAILY Qty: 30 2RF Vraylar 1.5 mg capsule 1.5 mg PO DAILY Qty: 30 2RF ivermectin 3 mg tablet 6 mg PO DIRECTED Qty: 4 0RF Rx Instructions: Take 2 pills today, repeat in 1 week (scabies NOT COVID) hydroxyzine pamoate 50 mg capsule 50 mg PO BID Qty: 180 3RF buspirone 10 mg tablet See Rx Instructions .ROUTE .COMPLEX Qty: 180 0RF Dose Instruction: Take 1 tablet by mouth twice daily Rx Instructions: Take 1 tablet by mouth twice daily Referrals Follow up/Referrals: Laya Grant PA [Primary Care Provider] - See instructions Activity Restrictions/Add. Instructions Additional Instructions/Restrictions: Take medication as prescribed Follow up with your Family Doctor if no improvement or any worsening of symptoms Return if needed Straight to ER if any life threatening symptoms Clinical Impressions Clinical Impression: Otitis media Instructions Patient Instructions: Middle Ear Infection Discharge ED Provider: Barbara Wise [facility] General Stated complaint: RT ear pain sore throat Mode of Arrival: Ambulatory Source of Information: Patient Limitations: No Limitations Time Seen by Provider: 12/31/22 14:12 Description of Symptoms (Recalled from Triage Doc. by RN): PATIENT C/O EAR PAIN X 2 DAYS HEENT Symptoms (Recalled from RN notes): Yes Resp Symptoms (Recalled from RN notes): No Skin Symptoms (Recalled from RN notes): No MS Symptoms (Recalled from RN notes): No Functional Status (Recalled from RN notes): WNL History of Present Illness Provider Complaint: Patient states that she has been having worsening of ear pain over the last couple of days States that her ear feels full and it hurts in her throat when she swallows Related Data Previous Rx's Medication Instructions Recorded hydroxyzine pamoate 50 mg capsule 50 mg PO BID . #180 caps 07/14/22 buspirone 10 mg tablet See Rx Instructions .Route 11/23/22 .COMPLEX #180 tabs permethrin 5 % topical cream 1 applic topical Q14D 2 doses #60 12/13/22 (Elimite) grams cariprazine 1.5 mg capsule 1.5 mg PO DAILY #30 caps 12/27/22 (Vraylar) duloxetine 30 mg capsule,delayed 30 mg PO DAILY #30 caps 12/27/22 release (Cymbalta) ivermectin 3 mg tablet 6 mg PO DIRECTED #4 tabs 12/27/22 amoxicillin 500 mg capsule 500 mg PO TID 10 days #30 caps 12/31/22 fluticasone propionate 50 1 spray intranasal DAILY #16 grams 12/31/22 mcg/actuation nasal spray,suspension (Flonase Allergy Relief) Allergies Allergy/AdvReac Type Severity Reaction Status Date / Time No Known Allergies Allergy Verified 12/27/22 10:02 Worker's Comp Is this a Worker's Comp case?: [facility] Disclaimer: The information contained in this section may have been updated after the patient was seen, as this information can be updated by other users. Medical History (Updated 12/31/22 @ 14:16 by Barbara Wise APRN) Anxiety Depression History of gestational diabetes Nexplanon in place Obesity Suicidal ideation Family History Other No significant family history Social History Smoking Status: Current every day smoker tobacco type: cigarettes packs per day: 1 alcohol intake: current substance use type: former substance user and marijua
[2022-12-31 14:14] VITALS: BP 114/76; PULSE 71; RESP 20; TEMP 36.7; O2SAT 99
== END 2022-12-31 14:20 | disposition home or self-care (01) ==
PROVIDERS: Emergency Provider Nurse Practitioner; PCP Physician Assistant
DX: H66.90 Otitis media, unspecified, unspecified ear (principal)
CPT/HCPCS: 99212; 99213; G0463

== ENCOUNTER 2023-02-14 13:57 | Emergency (ER) | payer MEDICAID, SELFPAY ==
[2023-02-14 14:15] VITALS: BP 125/74; PULSE 77; RESP 18; TEMP 37.1; O2SAT 98; BMI 33.0
--- NOTE | 2023-02-14 14:34 | EXP.UTC ---
Discharge Plan Disposition Patient Disposition: Home, Self-Care Condition: Good Prescriptions Prescriptions: No Action duloxetine [Cymbalta] 30 mg capsule,delayed release(DR/EC) 30 mg PO DAILY Qty: 30 2RF Vraylar 1.5 mg capsule 1.5 mg PO DAILY Qty: 30 2RF hydroxyzine pamoate 50 mg capsule 50 mg PO BID Qty: 180 3RF buspirone 10 mg tablet See Rx Instructions .ROUTE .COMPLEX Qty: 180 0RF Dose Instruction: Take 1 tablet by mouth twice daily Rx Instructions: Take 1 tablet by mouth twice daily fluticasone propionate [Flonase Allergy Relief] 50 mcg/actuation spray,suspension 1 spray intranasal DAILY Qty: 16 0RF Rx Instructions: administer into each nostril Referrals Follow up/Referrals: Laya Grant PA [Primary Care Provider] - See instructions Activity Restrictions/Add. Instructions Additional Instructions/Restrictions: *Monitor Temp, Over the counter Motrin or Tylenol as directed/as needed Tylenol every 4 hours and Motrin every 6 hours (as long as your family doctor has told you that you can take it) for fever or pain. and straight to ER if unable to lower temp less than 101.0 after medication given *Warm salt water gargles may help to soothe the throat *Throat Lozenges? *Warm fluids like tea with honey may help to soothe the throat? *Sleep elevated *Humidifier/Vaporizer Your throat swab was sent for culture. Those results are typically sent to your primary care. Be sure to follow up in 2-3 days with your family doctor/primary care physician if no improvement so they can review those result and treat if necessary. If you don?t have a primary care doctor, I recommend you get one but in the mean time, you will have to return to a walk in clinic Follow up IMMEDIATELY for new or worsening symptoms or no Noticeable improvement over the next 48-72 hours. 911 for difficulty breathing or swallowing Clinical Impressions Clinical Impression: Viral upper respiratory infection Stand Alone Forms Stand Alone Forms: Work/School Release Instructions Patient Instructions: Sore Throat Discharge ED Provider: Barbara Wise [facility] HPI General Stated complaint: Sore throat, cough Time Seen by Provider: 02/14/23 14:34 History of Present Illness Provider Complaint: Patient states that for the last couple of days she has been having cough and sore throat States that strep throat is going around and she was worried she may have it Related Data Previous Rx's Medication Instructions Recorded hydroxyzine pamoate 50 mg capsule 50 mg PO BID . #180 caps 07/14/22 buspirone 10 mg tablet See Rx Instructions .Route 11/23/22 .COMPLEX #180 tabs cariprazine 1.5 mg capsule 1.5 mg PO DAILY #30 caps 12/27/22 (Vraylar) duloxetine 30 mg capsule,delayed 30 mg PO DAILY #30 caps 12/27/22 release (Cymbalta) fluticasone propionate 50 1 spray intranasal DAILY #16 grams 12/31/22 mcg/actuation nasal spray,suspension (Flonase Allergy Relief) Allergies Allergy/AdvReac Type Severity Reaction Status Date / Time No Known Allergies Allergy Verified 01/17/23 09:40 [facility] Disclaimer: The information contained in this section may have been updated after the patient was seen, as this information can be updated by other users. Medical History Anxiety Depression History of gestational diabetes Nexplanon in place Insertion 10/15/17 Obesity Suicidal ideation Family History Other No significant family history Social History Smoking Status: Current every day smoker tobacco type: cigarettes packs per day: 1 alcohol intake: current substance use type: former substance user and marijuana current occupational status: employed Travel in the last 8 weeks: None ROS Obtained: Yes All systems reviewe
[2023-02-14 14:44] LABS: UTC Strep Screen (Rapid) Negative (Negative)
[2023-02-14 14:50] VITALS: BP 125/74; PULSE 77; RESP 18; TEMP 37.1; O2SAT 98
== END 2023-02-14 14:53 | disposition home or self-care (01) ==
PROVIDERS: Emergency Provider Nurse Practitioner; PCP Physician Assistant
DX: J06.9 Acute upper respiratory infection, unspecified (principal)
CPT/HCPCS: 87880; 99212; 99213; G0463

== ENCOUNTER → 2023-03-14 19:36 | Outpatient (CLI) | payer MEDICAID, SELFPAY ==
[2023-03-14 19:59] LABS: Microscopic, Urine URINE MICROSCOPIC (MICROSCOPIC)
[2023-03-14 20:54] LABS: Appearance,Urine CLEAR (Clear); Bilirubin,Urine Negative (Negative); Blood, Urine Negative (Negative); Color,Urine YELLOW (Yellow); Glucose,Urine (UA) Negative (Negative); Ketones,Urine Negative (Negative); Leukocyte Esterase,Urine TRACE (Negative); Nitrate,Urine Negative (Negative); Protein,Urine Negative (Negative); Urobilinogen,Urine 0.2 EU/dl (0.2)
[2023-03-14 22:11] LABS: Bacteria,Urine Trace /lpf
== END ==
PROVIDERS: PCP Physician Assistant; Visit Provider Physician Assistant
DX: N39.0 Urinary tract infection, site not specified (principal)
CPT/HCPCS: 81001

== ENCOUNTER 2023-04-21 20:17 | Emergency (ER) | payer MEDICAID, SELFPAY ==
[2023-04-21 20:18] VITALS: BP 113/72; PULSE 91; RESP 18; TEMP 37; O2SAT 95; BMI 33.0
[2023-04-21 20:30] VITALS: BP 117/68; PULSE 82; O2SAT 96
--- NOTE | 2023-04-21 20:41 | XR_ITS ---
PROCEDURE INFORMATION: Exam: XR Chest Exam date and time: 04/21/2023 8:46 PM Age: 37 years old Clinical indication: Pain; Chest pressure; Additional info: Painful breathing TECHNIQUE: Imaging protocol: Radiologic exam of the chest. Views: 2 views. COMPARISON: CR XR CHEST PORTABLE 09/09/2022 3:10 PM FINDINGS: Lungs: Unremarkable. No consolidation. Pleural spaces: Unremarkable. No pleural effusion. No pneumothorax. Heart/Mediastinum: Unremarkable. No cardiomegaly. Bones/joints: Unremarkable. IMPRESSION: No acute findings.
[2023-04-21 20:51] LABS: Urine Pregnancy, HCG Qual. Negative (Negative)
--- NOTE | 2023-04-21 20:56 | HMH.EDURI ---
Discharge Plan Disposition Patient Disposition: Home, Self-Care Prescriptions Prescriptions: New azithromycin [azithromycin] 250 mg tablet 250 mg PO DIRECTED Qty: 6 0RF Rx Instructions: Take two (2) tablets on day #1, then one (1) tablet day #2 thru #5 prednisone [prednisone] 20 mg tablet 20 mg PO BID Qty: 10 0RF No Action duloxetine 60 mg capsule,delayed release(DR/EC) 60 mg PO DAILY Qty: 90 0RF ciprofloxacin HCl [Cipro] 500 mg tablet 500 mg PO BID 5 Days Qty: 10 0RF buspirone 10 mg tablet See Rx Instructions .ROUTE .COMPLEX Qty: 180 0RF Dose Instruction: Take 1 tablet by mouth twice daily Rx Instructions: Take 1 tablet by mouth twice daily hydroxyzine pamoate 50 mg capsule 50 mg PO BID Qty: 180 3RF fluticasone propionate [Flonase Allergy Relief] 50 mcg/actuation spray,suspension 1 spray intranasal DAILY Qty: 16 0RF Rx Instructions: administer into each nostril Referrals Follow up/Referrals: Laya Grant PA [Primary Care Provider] - See instructions Clinical Impressions Clinical Impression: Bronchitis Instructions Patient Instructions: DI for Acute Bronchitis Discharge ED Provider: Jose Antonio (ED)Ricardo URI/Sore Throat HPI General Chief Complaint: Upper Respiratory Infection Stated Complaint: back pain, cough SOA Time Seen by Provider: 04/21/23 20:35 Mode of Arrival: Ambulatory Source of Information: Patient and Medical Record Limitations: No Limitations Description of Symptoms (Recalled from ER Triage Doc. by RN): pt reports that she has felt bad for about 2 weeks the pt states that this am she woke up with trouble breathing and that she wanted to make sure it didnt get worse History of Present Illness HPI Narrative: nonprod cough and pleuritic pain over the last few days - does smoke - no ongoing chronic illness - MD Complaint: cough Onset (ago): day(s) Duration: intermittent Severity: moderate Able to tolerate fluids by mouth: Yes Associated symptoms: denies other symptoms Treatments prior to arrival: none Related Data Previous Rx's Medication Instructions Recorded fluticasone propionate 50 1 spray intranasal DAILY #16 grams 12/31/22 mcg/actuation nasal spray,suspension (Flonase Allergy Relief) buspirone 10 mg tablet See Rx Instructions .Route 05/11/23 .COMPLEX #180 tabs hydroxyzine pamoate 50 mg capsule 50 mg PO BID . #180 caps 03/08/23 ciprofloxacin HCl 500 mg tablet 500 mg PO BID 5 days #10 tabs 03/14/23 (Cipro) duloxetine 60 mg capsule,delayed 60 mg PO DAILY #90 caps 03/14/23 release azithromycin 250 mg tablet 250 mg PO DIRECTED #6 tabs 04/21/23 prednisone 20 mg tablet 20 mg PO BID #10 tabs 04/21/23 Allergies Allergy/AdvReac Type Severity Reaction Status Date / Time cariprazine [From Vraylar] AdvReac Intermediate increased Unverified 03/14/23 09:54 anxiety [facility] Disclaimer: The information contained in this section may have been updated after the patient was seen, as this information can be updated by other users. Medical History Anxiety Depression History of gestational diabetes Nexplanon in place Insertion 10/15/17 Obesity Suicidal ideation Family History Other No significant family history Social History Smoking Status: Current every day smoker tobacco type: cigarettes packs per day: 1 alcohol intake: current substance use type: former substance user and marijuana current occupational status: employed Travel in the last 8 weeks: None ROS Obtained: Yes All systems reviewed & no additional complaints except as documented Physical Exam General General appearance: alert Head Head exam: normocephalic Eye Eye exam: Present PERRL and EOMI ENT ENT exam: Present mucous membranes moist
[2023-04-21 21:00] VITALS: BP 119/76; PULSE 78; O2SAT 96
--- NOTE | 2023-04-21 21:38 | PC.NURSE ---
ROUNDED ON PT NOTHING NEEDED AT THIS TIME
[2023-04-21 21:58] VITALS: BP 115/73; PULSE 74; RESP 18; TEMP 37; O2SAT 96
== END 2023-04-21 21:59 | disposition home or self-care (01) ==
PROVIDERS: Emergency Provider Emergency Medicine; PCP Physician Assistant
DX: J20.9 Acute bronchitis, unspecified (principal); R07.81 Pleurodynia; F17.210 Nicotine dependence, cigarettes, uncomplicated; F41.9 Anxiety disorder, unspecified; F32.A Depression, unspecified
CPT/HCPCS: 71046; 81025; 99283; 99284

== ENCOUNTER 2023-08-02 07:59 | Emergency (ER) | payer MEDICAID, SELFPAY ==
[2023-08-02] VITALS (7 sets, daily range): BP systolic 110–147; BP diastolic 72–91; PULSE 50–84; RESP 18; TEMP 36.7; O2SAT 98–100; BMI 32.2
--- NOTE | 2023-08-02 08:06 | ECG_ITS ---
APPROVED REPORT Exam: Resting ECG HR:66 bpm ECG Measurements Heart Rate 66 AXES OH 134 P 45 QRSd 85 QRS 65 QT 396 T 42 QTc 410 Conclusion SINUS RHYTHM WITH SINUS ARRHYTHMIA NORMAL ECG UNCONFIRMED REPORT Electronically signed by : Alton Wilson MD 08/04/2023 08:02:13
--- NOTE | 2023-08-02 08:21 | XR_ITS ---
FINAL REPORT CLINICAL HISTORY: cough, SOA smoker x 1 year COMPARISON: 04/21/2023 FINDINGS: Two views of the chest were obtained. The heart size and pulmonary vascularity are within normal limits. The mediastinum is normal. No acute pulmonary abnormality is identified. There is no pneumothorax. The bony thorax is intact. IMPRESSION: No active cardiopulmonary disease. Reviewed, Interpreted and Dictated by Carmelo Ghotra III, MD Transcribed by Minnie Estrada Authenticated and [facility]
--- NOTE | 2023-08-02 08:22 | HMH.EDGENADL ---
Discharge Plan Disposition Patient Disposition: Home, Self-Care Condition: Good Prescriptions Prescriptions: New fluticasone propionate [Flonase Allergy Relief] 50 mcg/actuation spray,suspension 1 spray intranasal BID Qty: 16 0RF Rx Instructions: administer into each nostril cetirizine 10 mg tablet 10 mg PO DAILY Qty: 30 0RF azithromycin [Zithromax TRI-CARSON] 500 mg tablet See Rx Instructions .ROUTE .COMPLEX Qty: 3 0RF Rx Instructions: For 250 mg dose pack: take 500 mg today (day 1), then 250 mg for 4 days (days 2-5) No Action ciprofloxacin HCl [Cipro] 500 mg tablet 500 mg PO BID 5 Days Qty: 10 0RF buspirone 10 mg tablet See Rx Instructions .ROUTE .COMPLEX Qty: 180 0RF Dose Instruction: Take 1 tablet by mouth twice daily Rx Instructions: Take 1 tablet by mouth twice daily hydroxyzine pamoate 50 mg capsule 50 mg PO BID Qty: 180 3RF duloxetine 60 mg capsule,delayed release(DR/EC) See Rx Instructions .ROUTE .COMPLEX Qty: 90 0RF Dose Instruction: Take 1 capsule by mouth once daily Rx Instructions: Take 1 capsule by mouth once daily azithromycin [azithromycin] 250 mg tablet 250 mg PO DIRECTED Qty: 6 0RF Rx Instructions: Take two (2) tablets on day #1, then one (1) tablet day #2 thru #5 prednisone [prednisone] 20 mg tablet 20 mg PO BID Qty: 10 0RF fluticasone propionate [Flonase Allergy Relief] 50 mcg/actuation spray,suspension 1 spray intranasal DAILY Qty: 16 0RF Rx Instructions: administer into each nostril Referrals Follow up/Referrals: Laya Grant PA [Primary Care Provider] - See instructions Activity Restrictions/Add. Instructions Additional Instructions/Restrictions: You were evaluated in the emergency department today. Please waste picker your prescriptions at the pharmacy and take them as prescribed. Follow-up closely with your primary care provider. I recommend stopping vaping/smoking. Return to the emergency department for new or worsening symptoms. Clinical Impressions Clinical Impression: Cough, Chest tightness Instructions Patient Instructions: DI for Cough -- Adult, DI for Shortness of Breath Discharge ED Provider: Stella Murray General Adult HPI General Chief complaint: Shortness of Breath/Dyspnea Stated complaint: chest tightness soa back pain Time Seen by Provider: 08/02/23 08:17 History of Present Illness HPI narrative: This patient is a 37-year-old female who denies significant past medical history presenting to the emergency department for evaluation with concern for cough and chest tightness for several weeks. She reports that the cough has been progressively worsening throughout this time. She states that she feels like her lungs are hurting. She states this feels similar to the last time she had bronchitis earlier this year. She notes that she started vaping this year and has been vaping for about a year now, and she is concerned that this may be contributing to her symptoms. She notes that the cough is worse in the morning, and she feels like she has a lot of stuff that she needs to cough up but is having trouble getting it out. She denies any history of medical problems, cardiopulmonary issues such as asthma, allergies, or other issues. She has not taken any medications at home for the symptoms. On review of systems, she notes chills, but denies fever, sore throat, abdominal pain, vomiting, changes in bowel movements, rashes, or swelling. Related Data Previous Rx's Medication Instructions Recorded fluticasone propionate 50 1 spray intranasal DAILY #16 grams 12/31/22 mcg/actuation nasal spray,suspension (Flonase Allergy Relief) buspirone 10 mg tablet See Rx Instructions .Route 03/08/23 .COMPLEX #180 tabs hydroxyzine pamoate 50 mg capsule 50 mg PO BID . #180 caps 03/08/23 ciprofloxacin HCl 500 mg tablet 500 mg PO BID 5 days #10 tabs 03/14/23 (Cipkelly) catina
--- NOTE | 2023-08-02 10:02 | PC.NURSE ---
Checked on pt she is resting in bed ,call light at bs
== END 2023-08-02 11:01 | disposition home or self-care (01) ==
PROVIDERS: Emergency Provider Emergency Medicine; PCP Physician Assistant
DX: R07.89 Other chest pain (principal); R06.02 Shortness of breath; R05.9 Cough, unspecified; F17.290 Nicotine dependence, other tobacco product, uncomplicated; E66.9 Obesity, unspecified; F41.9 Anxiety disorder, unspecified; F32.A Depression, unspecified; I49.9 Cardiac arrhythmia, unspecified
CPT/HCPCS: 71046; 93005; 99284

== ENCOUNTER → 2023-09-11 06:53 | Outpatient (CLI) | payer MEDICAID, SELFPAY ==
[2023-09-11 18:19] LABS: Microscopic, Urine URINE MICROSCOPIC (MICROSCOPIC)
[2023-09-11 18:37] LABS: Appearance,Urine CLEAR (Clear); Bilirubin,Urine Negative (Negative); Blood, Urine Negative (Negative); Color,Urine YELLOW (Yellow); Glucose,Urine (UA) Negative (Negative); Ketones,Urine Negative (Negative); Leukocyte Esterase,Urine Negative (Negative); Nitrate,Urine Negative (Negative); PH,Urine 7.5 (5.0-8.5); Protein,Urine Negative (Negative); Urobilinogen,Urine 0.2 EU/dl (0.2)
[2023-09-11 18:43] LABS: Basophils % 0.5 % (0.1-2.0); Eosinophils # 0.1 K/mm3 (0.0-0.4); Eosinophils % 2.2 % (0.1-12.0); Hematocrit 41.1 % (37.0-47.0); Hemoglobin 14.1 g/dL (12.2-16.2); Lymphocytes # 1.7 K/mm3 (0.7-4.5); Lymphocytes % 28.5 % (10-50); Mean Corpuscular HGB Conc 34.4 g/dL (31.8-35.4); Mean Corpuscular Hemoglobin 31.2 pg (27.0-31.2); Mean Corpuscular Volume 90.7 fl (81-99); Mean Platelet Volume 10.8 fl (7.4-10.4); Monocytes # 0.3 K/mm3 (0.1-1.0); Monocytes % 4.6 % (1.7-9.3); Neutrophils # 3.9 K/mm3 (1.8-7.8); Neutrophils % 64.2 % (37.0-80.0); Platelet Count 191 K/mm3 (142-424); Red Blood Count 4.54 M/mm3 (4.20-5.40); Red Cell Distribution Width 12.8 % (11.5-17.5)
[2023-09-11 18:47] LABS: Alanine Aminotransferase 25 U/L (12-78); Albumin Level 4.3 g/dl (3.5-5.0); Albumin/Globulin Ratio 1.6 (1.1-1.8); Alkaline Phosphatase 49 U/L (38-126); Aspartate Amino Transferase 34 U/L (14-36); Bilirubin,Total 0.5 mg/dl (0.2-1.3); Blood Urea Nitrogen 12 mg/dl (7-17); Carbon Dioxide 26 mmol/L (22.0-30.0); Chloride 105 mmol/L (98-107); Chol/HDL Ratio 3.2 (1-3.5); Cholesterol 166 mg/dl (140-200); Estimated Glomerular Filt Rate 114 ml/min (>60); GFR (African American) 138 ML/MIN (>60); Globulin 2.7 g/dL (1.3-3.2); Glucose 97 mg/dl (74-100); HDL Cholesterol 52 mg/dl (40-60); Sodium 140 mmol/L (136-145); Triglycerides 80 mg/dl (30-150); VLDL Cholesterol 16 mg/dL (0-40)
[2023-09-11 18:58] LABS: Direct LDL Cholesterol 88.54 mg/dL (100-129)
[2023-09-11 19:04] LABS: 25-OH Vitamin D, Total 36.1 ng/mL (30-100); Free T4 (Free Thyroxine) 1.25 ng/dl (0.78-2.19)
[2023-09-11 19:17] LABS: Thyroid Stimulating Hormone 0.83 uIU/mL (0.465-4.68)
== END ==
PROVIDERS: PCP Emergency Medicine; Visit Provider Emergency Medicine
DX: R10.30 Lower abdominal pain, unspecified (principal); M54.50 Low back pain, unspecified; N39.0 Urinary tract infection, site not specified; E55.9 Vitamin D deficiency, unspecified; E66.9 Obesity, unspecified; Z68.31 Body mass index [BMI] 31.0-31.9, adult
CPT/HCPCS: 80053; 80061; 81001; 82306; 84439; 84443; 85025; 87086

== ENCOUNTER 2023-12-06 12:02 | Emergency (ER) | payer MEDICAID, SELFPAY ==
[2023-12-06 12:42] VITALS: BP 107/64; PULSE 59; RESP 18; TEMP 37.2; O2SAT 99; BMI 26.2
--- NOTE | 2023-12-06 12:48 | EXP.UTC ---
Discharge Plan Disposition Patient Disposition: Home, Self-Care Condition: Good Prescriptions Prescriptions: New amoxicillin 875 mg tablet 875 mg PO Q12H Qty: 20 0RF No Action buspirone 10 mg tablet See Rx Instructions .ROUTE .COMPLEX Qty: 180 0RF Dose Instruction: Take 1 tablet by mouth twice daily Rx Instructions: Take 1 tablet by mouth twice daily duloxetine 60 mg capsule,delayed release(DR/EC) See Rx Instructions .ROUTE .COMPLEX Qty: 90 0RF Dose Instruction: Take 1 capsule by mouth once daily Rx Instructions: Take 1 capsule by mouth once daily varenicline [Chantix Starting Month Box] 0.5 mg (11)- 1 mg (42) tablets,dose pack See Rx Instructions PO PER PKG DIR 28 Days Qty: 53 0RF Rx Instructions: PO PER PKG DIR cetirizine 10 mg tablet 10 mg PO DAILY Qty: 30 0RF Referrals Follow up/Referrals: Laya Grant PA [Primary Care Provider] - See instructions Activity Restrictions/Add. Instructions Additional Instructions/Restrictions: Take medication as prescribed Over the counter Motrin and/or Tylneol as needed for pain and fever Follow up with your Family Doctor if no improvement or any worsening of symptoms Straight to ER if any life threatening symptoms Clinical Impressions Clinical Impression: Otitis media Qualifiers: Otitis media type: unspecified Laterality: left Qualified Code(s): H66.92 - Otitis media, unspecified, left ear Instructions Patient Instructions: Middle Ear Infection, Amoxicillin Discharge ED Provider: Barbara Wise [facility] General Stated complaint: ear pain in both ears Time Seen by Provider: 12/06/23 12:48 History of Present Illness Provider Complaint: Patient states that for the last week she has been having pain in both ears that has got worse and pain is worse in her left ear so today she came in to get them checked Related Data Previous Rx's Medication Instructions Recorded cetirizine 10 mg tablet 10 mg PO DAILY #30 tabs 08/02/23 buspirone 10 mg tablet See Rx Instructions .Route 11/06/23 .COMPLEX #180 tabs duloxetine 60 mg capsule,delayed See Rx Instructions .Route 11/06/23 release .COMPLEX #90 ea varenicline 0.5 mg (11)-1 mg (42) See Rx Instructions PO PER PKG DIR 11/06/23 tablets in a dose pack (Chantix 28 days #53 tabs Starting Month Box) amoxicillin 875 mg tablet 875 mg PO Q12H #20 tabs 12/06/23 Allergies Allergy/AdvReac Type Severity Reaction Status Date / Time cariprazine [From Vraylar] AdvReac Intermediate increased Verified 12/06/23 13:01 anxiety [facility] Disclaimer: The information contained in this section may have been updated after the patient was seen, as this information can be updated by other users. Medical History Anxiety Depression History of gestational diabetes Nexplanon in place Insertion 10/15/17 Obesity Suicidal ideation Family History Other No significant family history Social History Smoking Status: Current every day smoker tobacco type: cigarettes packs per day: 1 alcohol intake: current substance use type: former substance user and marijuana current occupational status: employed Travel in the last 8 weeks: None ROS Obtained: Yes All systems reviewed & no additional complaints except as documented and Yes Systems reviewed as appropriate & no additional complaints except as documented Constitutional Constitutional: Reports system reviewed and no additional complaints, except as documented and Reports as per HPI ENT Ears, Nose, Mouth, and Throat: Reports system reviewed and no additional complaints, except as documented, Reports as per HPI and Reports otalgia Cardiovascular Cardiovascular: Reports system reviewed and no additional complaints, except as documented Respiratory Respiratory: Reports system reviewed and no additional complaints, except as documented and Reports as per HPI Gastrointestinal Gastrointestingal: Reports system reviewed and no additional complaints, except as documented and as per HPI Physical Exam General General appearance: alert and in no apparent distress ENT ENT exam: Present mucous membranes moist Expanded ENT Exam TM/Canal exam: Left TM: erythema and bulging Respiratory Respiratory exam: Present normal lung sounds bilaterally; Absent respiratory distress or wheezes Cardiovascular Cardiovascular exam: Present regular rate, normal rhythm and normal heart sounds Neurological Exam Neurological exam: Present alert, oriented X3 and normal gait Medical Decision Making Tiburcio Inquiry Pt receiving controlled substance: No Tiburcio was queried for this patient: No
[2023-12-06 13:10] LABS: UTC Strep Screen (Rapid) Negative (Negative)
[2023-12-06 13:24] VITALS: BP 107/64; PULSE 59; RESP 18; TEMP 37.2; O2SAT 99
== END 2023-12-06 13:24 | disposition home or self-care (01) ==
PROVIDERS: Emergency Provider Nurse Practitioner; PCP Physician Assistant
DX: H66.92 Otitis media, unspecified, left ear (principal); F17.210 Nicotine dependence, cigarettes, uncomplicated
CPT/HCPCS: 87880; 99212; 99214; G0463

== ENCOUNTER 2024-04-09 11:36 | Emergency (ER) | payer MEDICAID, SELFPAY ==
[2024-04-09 11:40] VITALS: BP 116/68; PULSE 57; RESP 21; TEMP 37.1; O2SAT 99; BMI 25.1
[2024-04-09 11:55] VITALS: BP 116/68; PULSE 57; RESP 21; TEMP 37.1; O2SAT 99
--- NOTE | 2024-04-09 11:55 | EXP.UTC ---
Discharge Plan Disposition Patient Disposition: Home, Self-Care Condition: Good Prescriptions Prescriptions: New omeprazole 20 mg capsule,delayed release(DR/EC) 20 mg PO DAILY Qty: 30 2RF Referrals Follow up/Referrals: Laya Grant PA [Primary Care Provider] - See instructions Activity Restrictions/Add. Instructions Additional Instructions/Restrictions: Follow up with primary care provider Clinical Impressions Clinical Impression: Acid reflux Qualifiers: Esophagitis presence: esophagitis presence not specified Qualified Code(s): K21.9 - Gastro-esophageal reflux disease without esophagitis Instructions Patient Instructions: DI for Gastroesophageal Reflux Disease (GERD), Gastroesophageal Reflux Disease (Alternative Therapy) Discharge ED Provider: Melissa Up [facility] [place] General Stated complaint: SOA, pain while breathing Mode of Arrival: Ambulatory Source of Information: Patient Limitations: No Limitations Time Seen by Provider: 04/09/24 11:48 Description of Symptoms (Recalled from Triage Doc. by RN): PATIENT C/O BILATERAL LUNG PAIN AND SOA. SHE STATES THIS HAS BEEN AN ON-GOING PROBLEM OVER THE PAST YEAR THAT GETS WORSE AT TIMES. HEENT Symptoms (Recalled from RN notes): No Resp Symptoms (Recalled from RN notes): Yes Skin Symptoms (Recalled from RN notes): No MS Symptoms (Recalled from RN notes): No Functional Status (Recalled from RN notes): WNL History of Present Illness Provider Complaint: Pt reports that she has been vaping for about a year and is worried because she has pain that started just below her sternum and goes up into her chest. She reports that this is worse when she lays down. She states that the pain will at times radiate to her back. She reports that she is so worried that it may be her lungs that she will become short of air. Related Data Previous Rx's Medication Instructions Recorded omeprazole 20 mg capsule,delayed 20 mg PO DAILY #30 caps 04/09/24 release Allergies Allergy/AdvReac Type Severity Reaction Status Date / Time cariprazine [From Vraylar] AdvReac Intermediate increased Verified 03/27/24 11:09 anxiety Worker's Comp Is this a Worker's Comp case?: No [facility] Disclaimer: The information contained in this section may have been updated after the patient was seen, as this information can be updated by other users. Medical History Obesity Suicidal ideation Anxiety Nexplanon in place Insertion 10/15/17 History of gestational diabetes Depression Family History Other Asthma Diabetes Hypertension Social History Smoking Status: Current every day smoker tobacco type: cigarettes packs per day: 1 alcohol intake: current alcohol intake frequency: holidays/special occasions only substance use type: former substance user and marijuana current occupational status: employed Travel in the last 8 weeks: None ROS Obtained: Yes All systems reviewed & no additional complaints except as documented Constitutional Constitutional: Reports system reviewed and no additional complaints, except as documented Eyes Eyes: Reports system reviewed and no additional complaints, except as documented ENT Ears, Nose, Mouth, and Throat: Reports system reviewed and no additional complaints, except as documented Cardiovascular Cardiovascular: Reports system reviewed and no additional complaints, except as documented and Reports chest pain at rest Respiratory Respiratory: Reports system reviewed and no additional complaints, except as documented and Reports shortness of breath Gastrointestinal Gastrointestingal: Reports system reviewed and no additional complaints, except as documented and abdominal pain Genitourinary Female Genitourinary: Reports system reviewed and no additional complaints, except as documented Musculoskeletal Musculoskeletal: Reports system reviewed and no additional complaints, except as documented Integumentary/Breasts Skin/Breast: Reports system reviewed and no additional complaints, except as documented Neurologic Neurologic: Reports system reviewed and no additional complaints, except as documented Endocrine Endocrine: Reports system reviewed and no additional complaints, except as documented Hematologic/Lymphatic Henatologic/Lymphatic: Reports system reviewed and no additional complaints, except as documented Allergic/Immunologic Allergic/Immunologic: Reports system reviewed and no additional complaints, except as documented Physical Exam General General appearance: alert and in no apparent distress Head Head exam: atraumatic and normocephalic Eye Eye exam: Present normal appearance ENT ENT exam: Present normal exam and normal oropharynx Neck Neck exam: Present normal inspection Chest Chest inspection: Present normal inspection and symmetric chest wall rise; Absent tenderness Respiratory Respiratory exam: Present normal lung sounds bilaterally Cardiovascular Cardiovascular exam: Present regular rate, normal rhythm and normal heart sounds Abdominal Exam Abdominal exam: Present soft and normal bowel sounds Abdominal tenderness: Present epigastrium Extremities Exam Extremities exam: Present normal inspection Back Exam Back exam: Present normal inspection Neurological Exam Neurological exam: Present alert and oriented X3 Psychiatric Psychiatric exam: Present normal affect and normal mood Skin Skin exam: Present warm, dry and intact Lymphatic Lymphatic Findings: no adenopathy Medical Decision Making Tiburcio Inquiry Pt receiving controlled substance: No Tiburcio was queried for this patient: No Vital Signs: 04/09/24 11:40 Temperature 98.8 F Temperature Source Oral Pulse Rate [Right Brachial] 57 L Respiratory Rate 21 Blood Pressure [Right Arm] 116/68 Blood Pressure Mean [Right Arm] 84 Blood Pressure Source [Right Arm] Automatic Cuff Blood Pressure Position [Right Arm] Sitting 02 Sat by Pulse Oximetry 99 Oxygen Delivery Method Room Air
== END 2024-04-09 12:00 | disposition home or self-care (01) ==
PROVIDERS: Emergency Provider Nurse Practitioner Family; PCP Physician Assistant
DX: K21.9 Gastro-esophageal reflux disease without esophagitis (principal); R06.02 Shortness of breath; R07.1 Chest pain on breathing; F17.210 Nicotine dependence, cigarettes, uncomplicated
CPT/HCPCS: 99212; 99214; G0463

== ENCOUNTER 2024-11-04 06:50 | Day surgery (SDC) | payer MEDICAID, SELFPAY ==
[2024-11-04] VITALS (14 sets, daily range): BP systolic 109–134; BP diastolic 43–80; PULSE 51–94; RESP 14–22; TEMP 36–36.8; O2SAT 96–100; BMI 25.6
--- NOTE | 2024-11-04 07:19 | ED_ITS ---
Discharge Plan Disposition Patient Disposition: Admitted Chief Complaint: Abdominal Pain Prescriptions Prescriptions: No Action omeprazole 20 mg capsule,delayed release(DR/EC) 20 mg PO DAILY Qty: 30 2RF Referrals Follow up/Referrals: Laya Grant PA [Primary Care Provider] - See instructions Clinical Impressions Clinical Impression: Acute cholecystitis, Biliary colic Instructions Patient Instructions: DI for Acute Abdominal Pain Print Language Print Language: Romansh Discharge ED Provider: Montez Iglesias General Adult HPI General Chief complaint: Abdominal Pain Stated complaint: upper abd, R side pain Time Seen by Provider: 11/04/24 07:06 Mode of Arrival: Ambulatory Source of Information: Patient Limitations: No Limitations Description of Symptoms (Recalled from ER Triage Doc. by RN): Abdominal Pain Started suddenly at 0500. Pt states it woke her up and feel like an intense cramp. Pt has nausea. Denies any PMH. NKA History of Present Illness HPI narrative: Please note that above description of symptoms, in this electronic medical record under categorization of recalled from ER triage doctor by RN are reflective of an initial nursing assessment, however, is not reflective of my full history and physical exam that was personally taken and clarified. Consequentially, this preceding description of symptoms, which may include the patient's categorized chief complaint in the EMR, do not reflect my personal clinical impression, and the ultimate description of history of present illness and patient stated complaints should be deferred to this section of the note. Unless stated otherwise or congruent with this section of the note, additional signs, symptoms, or incongruence should be interpreted as inaccurate with my clinical impression. Related Data Previous Rx's ?Medication ?Instructions ?Recorded omeprazole 20 mg capsule,delayed 20 mg PO DAILY #30 caps 04/09/24 release Allergies Allergy/AdvReac Type Severity Reaction Status Date / Time cariprazine (From [facility]) AdvReac Intermediate increased Verified 03/27/24 11:09 anxiety [facility] Disclaimer: The information contained in this section may have been updated after the patient was seen, as this information can be updated by other users. Medical History Obesity Suicidal ideation Anxiety Nexplanon in place Insertion 10/15/17 History of gestational diabetes Depression Family History Other Asthma Diabetes Hypertension Social History Smoking Status: Current every day smoker tobacco type: cigarettes packs per day: 1 alcohol intake: current alcohol intake frequency: holidays/special occasions only substance use type: former substance user and marijuana current occupational status: employed Travel in the last 8 weeks: None Have you lived/traveled outside US in past 30 days?: No Contact w/someone who lives/traveled outside US past 30 days?: No Exposure to someone with infectious disease in past 14 days?: No Do you have a fever (greater than 100.4 F or 38 C)?: No Have you tested positive for COVID-19: No Exposed to someone with COVID-19 in past 14 days?: No Do you have a sore throat?: No Do you have a cough?: No Do you have any weakness?: No Do you have any diarrhea?: No Are you experiencing any unusual bleeding?: No Do you have any muscle aches/pain?: No Do you have any abdominal pain?: No Are you experiencing loss of taste or smell?: No Other Medical History Have you received the Flu Vaccine for this season: No Have you received the Pneumonia Vaccine: No ROS Obtained: Yes All systems reviewed & no additional complaints except as documented Physical Exam General General appearance: alert and in distress (Mild distress secondary to pain, walking around the) Head Head exam: atraumatic and normocephalic Eye Eye exam: Present normal appearance, PERRL and EOMI Neck Neck exam: Present normal inspection, full ROM and trachea midline Respiratory Respiratory exam: Absent respiratory distress, wheezes, stridor, accessory muscle use or prolonged expiratory phase Cardiovascular Cardiovascular exam: Present regular rate, normal rhythm and other (Pulses equal symmetric in upper and lower extremities) Abdominal Exam Abdominal exam: Present soft, tenderness and guarding; Absent distention, rebound, rigidity or pulsatile mass Abdominal tenderness: Present RUQ, epigastrium and moderate Extremities Exam Extremities exam: Absent edema Neurological Exam Neurological exam: Present alert, oriented X3 and CN II-XII intact; Absent motor sensory deficit Skin Skin exam: Present warm and dry; Absent diaphoresis or erythema Medical Decision Making Medical Records Medical records reviewed: Yes I reviewed the patient's medical records. Screening: Per USPSTF and CDC recommendations, given the prevalence of disease in our region, it is our hospital?s policy to screen for HIV and viral Hepatitis for all patients aged 18 and over and those with ongoing risk factors. Tiburcio Inquiry Pt receiving controlled substance: No Tiburcio was queried for this patient: No Vital Signs: 11/04/24 06:51 11/04/24 07:34 11/04/24 08:18 Temperature 98.3 F Temperature Source Oral Pulse Rate 57 L 63 Pulse Rate [Right Radial] 68 Respiratory Rate 18 22 19 Blood Pressure 126/80 128/79 Blood Pressure [Right Arm] 127/74 Blood Pressure Mean [Right Arm] 91 Blood Pressure Source [Right Arm] Automatic Cuff Blood Pressure Position [Right Arm] Standing 02 Sat by Pulse Oximetry 99 100 97 Oxygen Delivery Method Room Air Room Air Room Air 11/04/24 09:01 11/04/24 09:30 Temperature Temperature Source Pulse Rate 63 59 L Pulse Rate [Right Radial] Respiratory Rate 18 14 Blood Pressure 131/64 109/74 L Blood Pressure [Right Arm] Blood Pressure Mean [Right Arm] Blood Pressure Source [Right Arm] Blood Pressure Position [Right Arm] 02 Sat by Pulse Oximetry 99 100 Oxygen Delivery Method Room Air Room Air Lab Data Lab Results 11/04/24 07:01: Urine Color Yellow, Urine Appearance Clear, Urine pH 6.0, Ur Specific [place] >= 1.030, Urine Protein Negative, Urine Glucose (UA) Negative, Urine Ketones Negative, Urine Blood 2+ A, Urine Nitrate Negative, Urine Bilirubin Negative, Urine Urobilinogen 0.2, Ur Leukocyte Esterase Negative, Urine RBC Occasional, Urine WBC 3-5, Ur Squamous Epith Cells Occasional, Urine Bacteria Trace 11/04/24 07:29: WBC 6.9, RBC 4.60, Hgb 13.9, Hct 40.2, MCV 87.4, MCH 30.2, MCHC 34.6, RDW 11.9, Plt Count 196, MPV 12.2 H, Neut % (Auto) 61.7, Lymph % (Auto) 26.7, [place] % (Auto) 7.1, Eos % (Auto) 3.0, Baso % (Auto) 0.9, Neut # (Auto) 4.3, Lymph # (Auto) 1.9, [place] # (Auto) 0.5, Eos # (Auto) 0.2, Baso # (Auto) 0.1, PT 10.4, INR 0.92, APTT 24.9, Sodium 140, Potassium 3.9, Chloride 106, Carbon Dioxide 22, Anion Gap 15.9 H, BUN 19 H, Creatinine 0.70, Estimated Creat Clear 111, Estimated GFR 95, Est GFR ( Amer) 115, Glucose 88, Hemoglobin A1c 4.7, Lactate 1.9, Calcium 9.4, Total Bilirubin 0.9, AST 73 H, ALT 27, Alkaline Phosphatase 84, Troponin I < 0.01, Total Protein 7.5, Albumin 4.7, Globulin 2.8, Albumin/Globulin Ratio 1.7, Lipase 125, HCG, Quant < 2 11/04/24 07:29 11/04/24 07:29 Orders (Tests/Meds): ED MEDICATIONS Generic Name Dose Route Start Last Admin Trade Name Sara PRN Reason Stop Dose Admin Sodium Chloride 10 ml 11/04/24 07:10 11/04/24 07:36 Sodium Chloride 0.9% 10ml Vial IV 12/04/24 07:09 10 ml NEEDED PRN Administration dilute protonix Discontinued Medications Generic Name Dose Route Start Last Admin Trade Name Sara PRN Reason Stop Dose Admin Hydromorphone HCl 0.5 mg 11/04/24 07:10 11/04/24 07:35 Hydromorphone 2mg/Ml Syringe IV 11/04/24 07:11 0.5 mg ONCE ONE Administration Hydromorphone HCl 0.5 mg 11/04/24 08:54 11/04/24 09:06 Hydromorphone 2mg/Ml Syringe IV 11/04/24 08:55 0.5 mg ONCE ONE Administration Lactated Ringer's 1,000 mls @ 999 mls/hr 11/04/24 08:27 11/04/24 08:35 Lactated Ringer's 1000 Ml Bag IV 11/04/24 09:27 999 mls/hr .Q1H1M ONE Administration Ketorolac Tromethamine 15 mg 11/04/24 08:54 11/04/24 09:06 Ketorolac 30mg/Ml Vial IV 11/04/24 08:55 15 mg ONCE ONE Administration Ondansetron HCl 4 mg 11/04/24 07:10 11/04/24 07:36 Ondansetron 4mg Odt SL 11/04/24 07:11 4 mg ONCE ONE Administration Pantoprazole Sodium 40 mg 11/04/24 07:10 11/04/24 07:36 Pantoprazole 40mg Vial IV 11/04/24 07:11 40 mg ONCE ONE Administration ORDERS Category Date Time Status POCUS Point of Care (ER Only) Stat Exams 11/04/24 07:10 Completed US abdomen limited Stat Exams 11/04/24 08:27 Taken Complete Blood Count Auto Diff Stat Lab 11/04/24 07:29 Completed Comprehensive Metabolic Panel Stat Lab 11/04/24 07:29 Completed HCG,Quantitative Stat Lab 11/04/24 07:29 Completed Hemoglobin A1C Stat Lab 11/04/24 07:29 Completed Lactic Acid Stat Lab 11/04/24 07:29 Completed Lipase Stat Lab 11/04/24 07:29 Completed PT INR [Prothrombin Time INR] Stat Lab 11/04/24 07:29 Completed PTT [Activated Partial Thrombo Time] Stat Lab 11/04/24 07:29 Completed Troponin I Q3H Lab 11/04/24 10:15 Ordered Troponin I Q3H Lab 11/04/24 13:15 Ordered Troponin I Stat Lab 11/04/24 07:29 Completed UA [Urinalysis and Microscopic] Stat Lab 11/04/24 07:01 Completed Medical Decision Narrative: This is a 38-year-old female no relevant medical history presenting with epigastric pain. Patient states that around 5 AM about 2 hours prior to this visit, she started having epigastric pain. She had this pain a couple of days prior to this, but went away on its own after few minutes. This pain is not going away. It is epigastric, radiates around to both flanks. Nausea without vomiting, no fevers or chills, last bowel movement was earlier today and normal for her. No blood in her stool. No flank tenderness, abdominal bruising, abdominal surgical history. She does have a Nexplanon in place. History was obtained via conversation with patient. On arrival, patient hemodynamically stable, alert, oriented x4, appropriate, GCS 15, moving all extremities spontaneously, pupils equal and reactive to light. Full physical exam performed and significant for uncomfortable, walking around the room, holding her abdomen. States that sitting down or getting up makes it worse, so she just wants to stand. Abdomen is moderately and diffusely tender, but primarily in epigastrium and right upper quadrant. No overlying skin changes. She is involuntarily guarding, no evidence of rebound or rigidity. Differential includes PUD, gastritis, enteritis, gastroenteritis, pancreatitis, SBO, colitis, diverticulitis, nephrolithiasis, UTI, , cholecystitis, choledocholithiasis, appendicitis, hepatitis, torsion, aortic pathology, mesenteric ischemia among others. Patient placed on continuous cardiac monitoring and continuous pulse ox with initial blood pressure 127/74, heart rate 68, saturation 99% on room air. Independent interpretation of EKG shows 47 bpm sinus bradycardia with [place] 132, QRS 87, QTc 411. Normal axis. Patient was given Zofran and Dilaudid for symptomatic management and correction of underlying abnormalities. Workup independently interpreted and significant for no leukocytosis. Nonactionable CBC or chemistry otherwise. Normal LFTs. Lipase, , troponin negative. On independent interpretation of imaging, no acute process in the chest. See radiology read for full review of final results. Bedside [id number] ultrasound performed and patient has clinical cholecystitis with stones, distended gallbladder, upper limit of normal gallbladder measurements, and sonographic Gonsalez sign. CT scan of the abdomen and pelvis was considered, but not deemed necessary. I feel patient's symptoms and ultrasound/lab workup is consistent with biliary colic and acute cholecystitis obviating the need for further CT scanning. Heart score 0. General surgery was contacted and case was discussed at length, recommended to ORN likely discharge from PACU. Antibiotics were considered, but they were withheld at this time given no systemic signs or symptoms with no leukocytosis and largely negative labs. Environmental Technician disclaimer Much of this encounter note is an electronic information management officer spoken language to printed text. Electronic information management officer of the spoken language may permit errors. Although I have reviewed the note, some errors may still exist. Procedures Limited Ultrasound Indication:: Limited RUQ ultrasound Indication: Abdominal pain, colicky Identified structures: -Gallbladder -Gallbladder wall -Common bile duct -Liver Findings: Sonographic Gonsalez sign: Present Gallstones: Present with impacted stone in the neck Sludge: Absent Pericholecystic fluid: Absent Maximal GB wall thickness (mm) (normal is </= 3mm): Just under 3 mm Common bile duct width (mm) (normal is </= 6mm): Normal Gallbladder width (cm) (normal is < 4cm): Just under 4 cm Gallbladder length (cm) (normal is < 10cm): 12 cm Impression: Cholelithiasis with sonographic Gonsalez sign and distention consistent with cholecystitis Images were saved to permanent archive The study was technically adequate CPT 49487-31 This study was performed by me, and I personally interpreted all images/videos. Based on my clinical judgement, these images were adequate and did not necessitate further imaging. Critical Care Critical Care Time Critical Care Time: No
--- NOTE | 2024-11-04 07:28 | ECG_ITS ---
APPROVED REPORT Exam: Resting ECG HR:47 bpm ECG Measurements Heart Rate 47 AXES CO 132 P 42 QRSd 87 QRS 49 QT 449 T 48 QTc 411 Conclusion SINUS BRADYCARDIA BORDERLINE ECG UNCONFIRMED REPORT Electronically signed by : Alton Wilson MD 11/04/2024 10:46:18
[2024-11-04] MEDS: HYDROMORPHONE 2MG/ML SYRINGE 0.5 MG IV ×2 (07:35→09:06)
[2024-11-04] MEDS: ONDANSETRON 4MG ODT 4 MG SL (07:36)
[2024-11-04] MEDS: PANTOPRAZOLE 40MG VIAL 40 MG IV (07:36)
[2024-11-04] MEDS: SODIUM CHLORIDE 0.9% 10ML VIAL 10 ML IV (07:36)
[2024-11-04 07:48] LABS: Basophils # 0.1 K/mm3 (0-0.2); Basophils % 0.9 % (0.1-2.0); Eosinophils # 0.2 K/mm3 (0.0-0.4); Hematocrit 40.2 % (37.0-47.0); Hemoglobin 13.9 g/dL (12.2-16.2); Lymphocytes # 1.9 K/mm3 (0.7-4.5); Lymphocytes % 26.7 % (10-50); Mean Corpuscular HGB Conc 34.6 g/dL (31.8-35.4); Mean Corpuscular Hemoglobin 30.2 pg (27.0-31.2); Mean Corpuscular Volume 87.4 fl (81-99); Mean Platelet Volume 12.2 fl (7.4-10.4); Monocytes # 0.5 K/mm3 (0.1-1.0); Monocytes % 7.1 % (1.7-9.3); Neutrophils # 4.3 K/mm3 (1.8-7.8); Neutrophils % 61.7 % (37.0-80.0); Platelet Count 196 K/mm3 (142-424); Red Cell Distribution Width 11.9 % (11.5-17.5); White Blood Count 6.9 K/mm3 (4.8-10.8)
[2024-11-04 07:48] LABS: Microscopic, Urine URINE MICROSCOPIC (MICROSCOPIC)
[2024-11-04 07:52] LABS: Appearance,Urine CLEAR (Clear); Bilirubin,Urine Negative (Negative); Blood, Urine 2+ (Negative); Color,Urine YELLOW (Yellow); Glucose,Urine (UA) Negative (Negative); Ketones,Urine Negative (Negative); Leukocyte Esterase,Urine Negative (Negative); Nitrate,Urine Negative (Negative); Protein,Urine Negative (Negative); Specific Gravity, Urine >= 1.030 (1.005-1.030); Urobilinogen,Urine 0.2 EU/dl (0.2)
--- NOTE | 2024-11-04 08:00 | PC.NURSE ---
0800 Kelsie LOREDO to bedside.
[2024-11-04 08:08] LABS: Alanine Aminotransferase 27 U/L (12-78); Albumin Level 4.7 g/dl (3.5-5.0); Albumin/Globulin Ratio 1.7 (1.1-1.8); Alkaline Phosphatase 84 U/L (38-126); Anion Gap 15.9 mEq/L (5-15); Aspartate Amino Transferase 73 U/L (14-36); Bilirubin,Total 0.9 mg/dl (0.2-1.3); Blood Urea Nitrogen 19 mg/dl (7-17); Calcium 9.4 mg/dl (8.4-10.2); Carbon Dioxide 22 mmol/L (22.0-30.0); Chloride 106 mmol/L (98-107); Creatinine Clearance Estimated 111 mL/min (50-200); Estimated Glomerular Filt Rate 95 ml/min (>60); GFR (African American) 115 ML/MIN (>60); Globulin 2.8 g/dL (1.3-3.2); Glucose 88 mg/dl (74-100); Potassium 3.9 mmoL/L (3.5-5.1); Sodium 140 mmol/L (136-145); Total Protein,Serum 7.5 g/dl (6.3-8.2)
[2024-11-04 08:09] LABS: Activated Partial Thrombo Time 24.9 seconds (22.8-30.6); Lactic Acid 1.9 mmol/L (0.7-2.1)
[2024-11-04 08:14] LABS: Bacteria,Urine Trace /lpf; RBC,Urine Occasional #/hpf (0-3); Squamous Epithelial Cell,Urine Occasional #/hpf (0-5)
--- NOTE | 2024-11-04 08:15 | PC.NURSE ---
Pt states pain has improved. Rates pain as a 7/10, but does request additional pain medication. Ice chips provided with provider approval.
--- NOTE | 2024-11-04 08:20 | PC.NURSE ---
page made to surgeon decontaminator.
[2024-11-04 08:21] LABS: INR 0.92 (0.9-1.1); Prothrombin Time 10.4 seconds (10.1-12.5)
[2024-11-04 08:22] LABS: Troponin I < 0.01 ng/ml (0.00-0.034)
--- NOTE | 2024-11-04 08:23 | PC.NURSE ---
on phone with dr jetre
--- NOTE | 2024-11-04 08:27 | US_ITS ---
FINAL REPORT CLINICAL HISTORY: biuliary colic COMPARISON: None FINDINGS: Sonographic images of the right upper quadrant were obtained. The pancreas is partially obscured.The liver has an unremarkable appearance. The gallbladder is incompletely distended with 3 large gallstones. There is no evidence of biliary ductal dilatation.The common duct measures 3 mm. Limited images of the right kidney are unremarkable. IMPRESSION: 3 large gallstones in an incompletely distended gallbladder Reviewed, Interpreted and Dictated by Freddie Givens MD Transcribed by Goldie Cerda Authenticated and [facility]
--- NOTE | 2024-11-04 08:28 | PC.NURSE ---
Pt ambulates to the bathroom with a steady gate. changed into gown. Pt places belongings into bag.
[2024-11-04] MEDS: LACTATED RINGERS 1000ML 1,000 ML 999 ML IV (08:35)
--- NOTE | 2024-11-04 08:39 | PC.NURSE ---
pt transported to [facility] via radiotelegrapher and wheelchair
--- NOTE | 2024-11-04 08:39 | PC.NURSE ---
pt to us
[2024-11-04 08:45] LABS: Lipase 125 U/L (23-300)
[2024-11-04 08:46] LABS: HCG,Quantitative < 2 mIU/ml (0-5.42)
--- NOTE | 2024-11-04 08:46 | EXP.GEN.HP ---
HPI HPI HPI: Patient is a 38-year-old female who presented to the emergency department with acute onset of epigastric pain occurring at approximately 5 AM this morning on 11/04/2024. She did have an episode a couple of days prior which was self-limited. She describes epigastric pain radiating around both flank areas with associated nausea. Examination in the emergency department revealed the patient to be quite uncomfortable with unrelenting pain with significant tenderness primarily in the right upper quadrant and epigastrium. She did undergo bedside ultrasound which revealed several large gallstones with stone impacted in the neck of the gallbladder with distended gallbladder without pericholecystic fluid. White blood cell count normal. Lipase normal. Slightly elevated AST of 73. Of note, patient had previously been seen in the emergency department on 04/09/2024 with epigastric pain radiating into her chest and back. [facility] Disclaimer: The information contained in this section may have been updated after the patient was seen, as this information can be updated by other users. Medical History Obesity Suicidal ideation Anxiety Nexplanon in place Insertion 10/15/17 History of gestational diabetes Depression Family History Other Asthma Diabetes Hypertension Social History Smoking Status: Current every day smoker tobacco type: cigarettes packs per day: 1 alcohol intake: current alcohol intake frequency: holidays/special occasions only substance use type: former substance user and marijuana current occupational status: employed Travel in the last 8 weeks: None Have you lived/traveled outside US in past 30 days?: No Contact w/someone who lives/traveled outside US past 30 days?: No Exposure to someone with infectious disease in past 14 days?: No Do you have a fever (greater than 100.4 F or 38 C)?: No Have you tested positive for COVID-19: No Exposed to someone with COVID-19 in past 14 days?: No Do you have a sore throat?: No Do you have a cough?: No Do you have any weakness?: No Do you have any diarrhea?: No Are you experiencing any unusual bleeding?: No Do you have any muscle aches/pain?: No Do you have any abdominal pain?: No Are you experiencing loss of taste or smell?: No Other Medical History Have you received the Flu Vaccine for this season: No Have you received the Pneumonia Vaccine: No Meds Home Medications and Allergies Home Medications ?Medication ?Instructions ?Recorded ?Confirmed ?Type omeprazole 20 mg capsule,delayed 20 mg PO DAILY #30 caps 04/09/24 Rx release New Prescriptions to Start Prescriptions: Allergies Allergy/AdvReac Type Severity Reaction Status Date / Time cariprazine (From [facility]) AdvReac Intermediate increased Verified 03/27/24 11:09 anxiety Exam Data for Last 24 hours Vital signs and Labs for Last 24 Hours: Temp Pulse Resp BP Pulse Ox O2 Del Method 98.3 F 63 19 128/79 97 Room Air 11/04/24 06:51 11/04/24 08:18 11/04/24 08:18 11/04/24 08:18 11/04/24 08:18 11/04/24 08:18 Laboratory Results - last 24 hr 11/04/24 07:01: Urine Color Yellow, Urine Appearance Clear, Urine pH 6.0, Ur Specific [place] >= 1.030, Urine Protein Negative, Urine Glucose (UA) Negative, Urine Ketones Negative, Urine Blood 2+ A, Urine Nitrate Negative, Urine Bilirubin Negative, Urine Urobilinogen 0.2, Ur Leukocyte Esterase Negative, Urine RBC Occasional, Urine WBC 3-5, Ur Squamous Epith Cells Occasional, Urine Bacteria Trace 11/04/24 07:29: WBC 6.9, RBC 4.60, Hgb 13.9, Hct 40.2, MCV 87.4, MCH 30.2, MCHC 34.6, RDW 11.9, Plt Count 196, MPV 12.2 H, Neut % (Auto) 61.7, Lymph % (Auto) 26.7, [place] % (Auto) 7.1, Eos % (Auto) 3.0, Baso % (Auto) 0.9, Neut # (Auto) 4.3, Lymph # (Auto) 1.9, [place] # (Auto) 0.5, Eos # (Auto) 0.2, Baso # (Auto) 0.1, PT 10.4, INR 0.92, APTT 24.9, Sodium 140, Potassium 3.9, Chloride 106, Carbon Dioxide 22, Anion Gap 15.9 H, BUN 19 H, Creatinine 0.70, Estimated Creat Clear 111, Estimated GFR 95, Est GFR ( Amer) 115, Glucose 88, Lactate 1.9, Calcium 9.4, Total Bilirubin 0.9, AST 73 H, ALT 27, Alkaline Phosphatase 84, Troponin I < 0.01, Total Protein 7.5, Albumin 4.7, Globulin 2.8, Albumin/Globulin Ratio 1.7 I & O for Last 24 hours: Intake & Output 11/01/24 11/02/24 11/03/24 11/04/24 11:59 11:59 11:59 11:59 Weight 140 lb Constitutional Constitutional: no acute distress *Routine HEENT Exam Head: Present normocephalic Eye: Present EOMI and PERRL ENT: Present mucous membranes moist *Routine Neck Exam Neck: Present supple; Absent lymphadenopathy *Routine Respiratory Exam Respiratory: Present CTA bilaterally *Routine Cardiovascular Exam Cardiovascular: Present RRR *Routine Abdominal Exam Abdominal: Present soft and tenderness Comments: She has some diffuse tenderness with voluntary guarding with a positive Gonsalez sign on the right upper quadrant. *Routine Rectal Exam Rectal:: deferred *Routine Genitalia Exam Genitalia:: deferred *Routine Extremities Exam Extremities: Absent cyanosis, clubbing or edema *Routine Skin Exam Skin: Present warm; Absent rash *Routine Neurological Exam Neurological: Present alert and oriented X3 Results Results Lab Results Last 24 Hours:: Laboratory Results - last 24 hr 11/04/24 07:01: Urine Color Yellow, Urine Appearance Clear, Urine pH 6.0, Ur Specific [place] >= 1.030, Urine Protein Negative, Urine Glucose (UA) Negative, Urine Ketones Negative, Urine Blood 2+ A, Urine Nitrate Negative, Urine Bilirubin Negative, Urine Urobilinogen 0.2, Ur Leukocyte Esterase Negative, Urine RBC Occasional, Urine WBC 3-5, Ur Squamous Epith Cells Occasional, Urine Bacteria Trace 11/04/24 07:29: WBC 6.9, RBC 4.60, Hgb 13.9, Hct 40.2, MCV 87.4, MCH 30.2, MCHC 34.6, RDW 11.9, Plt Count 196, MPV 12.2 H, Neut % (Auto) 61.7, Lymph % (Auto) 26.7, [place] % (Auto) 7.1, Eos % (Auto) 3.0, Baso % (Auto) 0.9, Neut # (Auto) 4.3, Lymph # (Auto) 1.9, [place] # (Auto) 0.5, Eos # (Auto) 0.2, Baso # (Auto) 0.1, PT 10.4, INR 0.92, APTT 24.9, Sodium 140, Potassium 3.9, Chloride 106, Carbon Dioxide 22, Anion Gap 15.9 H, BUN 19 H, Creatinine 0.70, Estimated Creat Clear 111, Estimated GFR 95, Est GFR ( Amer) 115, Glucose 88, Lactate 1.9, Calcium 9.4, Total Bilirubin 0.9, AST 73 H, ALT 27, Alkaline Phosphatase 84, Troponin I < 0.01, Total Protein 7.5, Albumin 4.7, Globulin 2.8, Albumin/Globulin Ratio 1.7 Assessment and Plan *Assessment and plan (1) Acute cholecystitis: Status: Acute Category: Medical Code(s): K81.0 - Acute cholecystitis Plan She has clinical history consistent with and objective findings consistent with clinical acute cholecystitis. Given her ongoing significant symptomatology plan will be to proceed with laparoscopic possibly open cholecystectomy. Nature and details of the proposed procedure along with associated risks and expected outcome were explained. She understands and agrees to proceed.
[2024-11-04 08:47] LABS: Hemoglobin A1C 4.7 % (4.0-6.0)
--- NOTE | 2024-11-04 09:01 | PC.NURSE ---
pt returned from us
[2024-11-04] MEDS: KETOROLAC 30MG/ML VIAL 15 MG IV (09:06)
--- NOTE | 2024-11-04 09:26 | PC.NURSE ---
dr farias speaking with dr jeter
--- NOTE | 2024-11-04 09:51 | PC.NURSE ---
laborer cook house notified of pt to surgery
--- NOTE | 2024-11-04 09:52 | PC.NURSE ---
Pre-op RN to bedside.
--- NOTE | 2024-11-04 09:57 | PC.NURSE ---
Pt to OR via stretcher with belongings
--- NOTE | 2024-11-04 10:20 | EXP.ANES.CKL ---
[facility] Disclaimer: The information contained in this section may have been updated after the patient was seen, as this information can be updated by other users. Medical History Obesity Suicidal ideation Anxiety Nexplanon in place Insertion 10/15/17 History of gestational diabetes Depression Family History Other Asthma Diabetes Hypertension Social History Smoking Status: Current every day smoker tobacco type: cigarettes packs per day: 1 alcohol intake: current alcohol intake frequency: holidays/special occasions only substance use type: former substance user and marijuana current occupational status: employed Travel in the last 8 weeks: None Have you lived/traveled outside [place] in past 30 days?: No Contact w/someone who lives/traveled outside US past 30 days?: No Exposure to someone with infectious disease in past 14 days?: No Do you have a fever (greater than 100.4 F or 38 C)?: No Have you tested positive for COVID-19: No Exposed to someone with COVID-19 in past 14 days?: No Do you have a sore throat?: No Do you have a cough?: No Do you have any weakness?: No Do you have any diarrhea?: No Are you experiencing any unusual bleeding?: No Do you have any muscle aches/pain?: No Do you have any abdominal pain?: No Are you experiencing loss of taste or smell?: No [facility] Anesthesia Checklist Patient Identification Patient Identification: Arm Band, Family and Verbal (Name & ) Structural Data Admitted From: Emergency Dept Planned Operative Procedure/s: Lap alexander Consent for Planned Operative Procedure(s) Verified: Yes Verified Documents: Surgical Consent and History and Physical NPO Status Verified Time NPO: 20:00 Chart Verification Results Verified: CBC, BMP, PT, PTT, INR, ECG and Chest Xray Additional verifications Patient : No Anesthesia Reactions: No Cardiovascular Assessment Heart Sounds: S1 & S2 Pulse Rhythm: Irregular Peripheral Edema: No Airway Assessment Mallampati Score:: Class II C-Spine Mobility Assessed: Yes (FROM demonstrated) TMJ Mobility Assessed: Yes Dentition: Good Dentition (Nothing loose per pt.) Neurological Assessment Level of Consciousness: Awake, Alert, Appropriate and Follows Commands Hx Seizures: No Numbness or tingling in extremities: No Anesthesia Plan Anesthesia Risk discussed: Yes Anesthesia Plan: Verified ASA Class: II Anesthesia Type: General
[2024-11-04] MEDS: CEFAZOLIN 1GM VIAL 2 GM (10:30)
[2024-11-04] MEDS: ROPIVACAINE 0.5% 30ML VIAL 150 MG (10:50)
[2024-11-04] MEDS: LIDOCAINE 1% 20ML MDV 20 ML (10:50)
--- NOTE | 2024-11-04 12:15 | P.OP_ITS ---
Date of procedure: 11/04/24 Pre-op Diagnosis:: Clinical acute cholecystitis Post-op Diagnosis:: Same Procedure performed:: Laparoscopic cholecystectomy Surgeon:: Carmelo Lopez MD PACK TRAIN DRIVER:: Shira Sweeney Anesthesia: ARSH Estimated blood loss (mL): 40 Clinical Note:: Patient is a 38-year-old female who presented to the emergency department with acute onset of epigastric pain occurring at approximately 5 AM this morning on 11/04/2024. She did have an episode a couple of days prior which was self- limited. She describes epigastric pain radiating around both flank areas with associated nausea. Examination in the emergency department revealed the patient to be quite uncomfortable with unrelenting pain with significant tenderness primarily in the right upper quadrant and epigastrium. She did undergo bedside ultrasound which revealed several large gallstones with stone impacted in the neck of the gallbladder with distended gallbladder without pericholecystic fluid. White blood cell count normal. Lipase normal. Slightly elevated AST of 73. Of note, patient had previously been seen in the emergency department on 04/09/2024 with epigastric pain radiating into her chest and back. She underwent gallbladder ultrasound which revealed 3 large gallstones. Surgical consultation was obtained and she was seen in the emergency department and found to have findings consistent with clinical acute cholecystitis. The options were discussed with her and plan was made to proceed with cholecystectomy with possible admission. Operative findings:: She had a distended edematous gallbladder with several large gallstones with large stone impacted at the neck of the gallbladder. Operative note:: Consent was obtained patient was taken to the operating room. She was given preoperative intravenous antibiotics. In the operating room she was placed in a supine position. General anesthesia was induced via endotracheal tube. Her abdomen was prepped and draped in the standard surgical fashion. Subumbilical skin incision was made and while performing abdominal wall lift Veress needle was inserted. CO2 pneumoperitoneum was achieved to 15 mmHg. 11 mm optical trocar was inserted at the umbilicus. Intraperitoneal contents were visualized. She was positioned in reverse Trendelenburg with left side down. A couple 5 mm trocars were inserted in the right upper abdomen. 11 mm trocar was inserted in the epigastrium. Gallbladder was identified and grasped retracted anteriorly over the dome of the liver. Gallbladder was distended and somewhat thickened. There were some omental adhesions to the gallbladder which were taken down using blunt dissection. There was edema surrounding the gallbladder. Infundibulum/Duarte's pouch of the gallbladder was retracted anterior laterally. Blunt dissection was carried out the neck of the gallbladder bluntly incising the visceral peritoneum. Limited use of electrocautery was used to incise the peritoneum laterally to clearly identified cystic duct and cystic artery. There was some minor oozing from branching vein near the cystic duct and Surgicel was used for temporary hemostasis to allow for ongoing dissection. Once the cystic duct and cystic artery were clearly identified cystic duct was multiply clipped and sharply divided. Cystic artery was carefully coagulated with TIM ultrasonic harmonic deon and divided. There was some minor oozing of bile from the neck of the gallbladder and a couple hemoclips and ultimately Endoloop was applied. Gallbladder was then dissected free from the liver in a r etrograde fashion using TIM ultrasonic harmonic deon. Gallbladder was placed within an Endo Catch retrieval device and removed from the peritoneal cavity via the umbilical trocar site which required some extension of the fascial incision for delivery. Gallbladder fossa was inspected for hemostasis which was assured. Irrigation and suctioning was performed. There was some minor oozing from the fascial incision at the umbilicus. Plan was made for closure and then reinspection laparoscopically. One of the 5 mm trocars and the umbilical trocar were removed. Fascia at the umbilicus was closed with multiple interrupted 0 Vicryl sutures. CO2 pneumoperitoneum was then reestablished and the incision was inspected for hemostasis which was assured. Residual blood and fluid was suctioned free. All trocars were then removed as CO2 pneumoperitoneum was evacuated once again. Local anesthetic was infiltrated. Skin incisions were closed with 4-0 Monocryl in a subcuticular fashion. Dermabond and dressings were applied. Condition: stable Disposition: PACU Complications:: None immediately apparent
--- NOTE | 2024-11-04 13:10 | EXP.ANES.I ---
[facility] Anesthesia Record Part I Anesthesia Record I Intake, IV Amount: 500 Hydration: Adequate Estimated blood loss (mL): 10 Urine output (mL): 0 Blood Pressure: 114/78 SaO2: 98 Pulse Rate: 76 Airway Patency: Patent Respiratory Rate: 16 Temperature: 96.8 F Patient is:: Awake and Stable Stable to PACU at:: 12:41
== END 2024-11-04 13:28 | disposition home or self-care (01) ==
LOC: ER 09:58 → SDC 10:03
PROVIDERS: Emergency Provider Emergency Medicine; PCP Physician Assistant; Visit Provider Surgery
PROC: 0FT44ZZ Resection of Gallbladder, Percutaneous Endoscopic Approach (ICD-10-PCS; CPT 47562; principal; 2024-11-04 10:30)
DX: K81.0 Acute cholecystitis (principal)
CPT/HCPCS: 47562; 76705; 80053; 81001; 83036; 83605; 83690; 84484; 84702; 85025; 85610; 85730; 93005; 96374; J3490; J1100; J1171; J1595; J1885; J2250; J2405; J3010; J7120; Q0162

== ENCOUNTER 2025-08-19 10:14 | Outpatient (CLI) | payer MEDICAID, SELFPAY ==
[2025-08-19 15:42] LABS: Hematocrit 42.6 % (37.0-47.0); Hemoglobin 14.5 g/dL (12.2-16.2); Immature Granulocytes % 0.9 %; Mean Corpuscular HGB Conc 34.0 g/dL (31.8-35.4); Mean Corpuscular Hemoglobin 29.7 pg (27.0-31.2); Mean Corpuscular Volume 87.1 fl (81-99); Nucleated Red Blood Cells % 0 %; Platelet Count 195 K/mm3 (142-424); Red Blood Count 4.89 M/mm3 (4.20-5.40); Red Cell Distribution Width-SD 36.8 fL; White Blood Count 5.5 K/mm3 (4.8-10.8)
[2025-08-19 16:05] LABS: Alanine Aminotransferase 37 U/L (12-78); Albumin Level 4.6 g/dl (3.5-5.0); Albumin/Globulin Ratio 1.8 (1.1-1.8); Alkaline Phosphatase 62 U/L (38-126); Anion Gap 14.2 mEq/L (5-15); Aspartate Amino Transferase 30 U/L (14-36); Bilirubin,Total 0.5 mg/dl (0.2-1.3); Blood Urea Nitrogen 15 mg/dl (7-17); Calcium 9.4 mg/dl (8.4-10.2); Carbon Dioxide 25 mmol/L (22.0-30.0); Chloride 105 mmol/L (98-107); Creatinine,Serum 0.70 mg/dl (0.52-1.04); Estimated Glomerular Filt Rate 94 ml/min (>60); GFR (African American) 114 ML/MIN (>60); Globulin 2.6 g/dL (1.3-3.2); Glucose 108 mg/dl (74-100); Potassium 4.2 mmoL/L (3.5-5.1); Sodium 140 mmol/L (136-145); Total Protein,Serum 7.2 g/dl (6.3-8.2)
[2025-08-19 16:19] LABS: Free T4 (Free Thyroxine) 1.17 ng/dl (0.78-2.19)
[2025-08-19 16:36] LABS: Thyroid Stimulating Hormone 1.62 uIU/mL (0.465-4.68)
[2025-08-19 16:52] LABS: Hepatitis C Ab Qual. W/ RFX NEGATIVE (Negative)
[2025-08-20 09:40] LABS: Hepatitis B Surface Antigen Negative (Negative)
== END 2025-08-19 23:59 | disposition home or self-care (01) ==
LOC: LAB.DROPOF 08-20 12:28
PROVIDERS: PCP Student in an Organized Health Care Education/Training Program; Visit Provider Student in an Organized Health Care Education/Training Program
DX: R00.1 Bradycardia, unspecified (principal); Z86.32 Personal history of gestational diabetes; Z68.32 Body mass index [BMI] 32.0-32.9, adult; R53.83 Other fatigue; Z11.59 Encounter for screening for other viral diseases
CPT/HCPCS: 80053; 84439; 84443; 85025; 86803; 87340; 87389

== ENCOUNTER 2025-08-21 11:59 | Outpatient (CLI) | payer MEDICAID, SELFPAY ==
--- OUTSIDE RECORDS SUMMARY | 2025-08-21 12:02 | XMS_ITS | Clinical Summary ---
Author Organization [facility] Address [address] [place] [address] Phone Care Team Providers Care Aerospace Products Sales Engineer Name Role Phone Jonathon Charlotte Primary Care Provider Allergies No known active allergies Medications FLUoxetine (PROZAC) 20 mg Oral Capsule 1 01/20/2019 Active ranitidine (ZANTAC) 150 mg Oral TabletIndication s:Acute epigastric pain Take 1 Tab by mouth 2 times daily. 10 Tab 04/01/2019 Active omeprazole (PRILOSEC) 20 mg Oral Capsule, Delayed Release(E.C.)Ind ications:Acute epigastric pain Take 1 Cap by mouth daily. 30 Cap 04/01/2019 Active Social History Tobacco Use Types Packs/Day Years Used Date Smoking Tobacco: Never Smokeless Tobacco: Never Alcohol Use Standard Drinks/Week Comments Yes 0 (1 standard drink = 0.6 oz pur e alcohol) AUDIT-C Answer Date Recorded Frequency of Alcohol Consumption Monthly or less 04/01/2019 Average Number of Drinks Not on file 019 Frequency of Binge Drinking Not on file 01/2019 Sexually Active Control Partners Comments Yes Implant Male Comments No Sex and Gender Information Value Date Recorded Sex Assigned at Not on file Legal Sex Female 10:07 PM EDT Gender Identity Not on file Sexual Orientation Not on file Last Filed Vital Signs Vital Sign Reading Time Taken Comments Blood Pressure 125/82 04/01/2019 4:07 PM EDT Pulse 87 04/01/2019 4:07 PM EDT Temperature 37.1 C (98.7 F) 04/01/2019 4:07 PM EDT Respiratory Rate - - Oxygen Saturation 96% 04/01/2019 4:07 PM EDT Inhaled Oxygen Concentration - - Weight 75 kg (165 lb 6.4 oz) 04/01/2019 4:07 PM EDT Height - - Body Mass Index - - Plan of Treatment Health Maintenance Due Date Last Done Comments Annual Wellness Exam 1990 DTaP/TDaP/Td (1 - Tdap) 2006 Hepatitis B Vaccine (1 of 3 - 19+ 3-dose series) 2006 COVID-19 Vaccine ( - 2024-2 6 season) 2025 Influenza Vaccine (#1) 2025 Meningococcal B Vaccine Aged Out No l onger eligible based on patient's age to complete this topic Pneumococcal Vaccine 0-49 Aged Out No longer eligible based on patient's age to complete this topic Goals Goal Patient Goal Type Associated Problems Recent Progress Patient-Stated? Author Maintain a healthy diet, exercise regularly and maintain an ideal body weight General No Goldie Montes, BLOCK HANDLER Care Teams Aerospace Products Sales Engineer Relationship Specialty Start Date End Date Charlotte Holt [address] [place], [place] [address] PCP - General Clinic/Center - [facility] ([facility]) 04/01/19
== END 2025-08-21 23:59 | disposition home or self-care (01) ==
LOC: RT 12:00
PROVIDERS: PCP Student in an Organized Health Care Education/Training Program; Visit Provider Student in an Organized Health Care Education/Training Program
DX: I49.3 Ventricular premature depolarization (principal); R00.1 Bradycardia, unspecified; R55 Syncope and collapse
CPT/HCPCS: 93225; 93227

== ENCOUNTER 2025-08-23 12:21 | Outpatient (CLI) | payer MEDICAID, SELFPAY ==
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
== END 2025-08-23 23:59 | disposition home or self-care (01) ==
PROVIDERS: PCP Student in an Organized Health Care Education/Training Program; Visit Provider Student in an Organized Health Care Education/Training Program
DX: I49.1 Atrial premature depolarization (principal); I47.19 Other supraventricular tachycardia; I49.3 Ventricular premature depolarization; I47.29 Other ventricular tachycardia; R00.1 Bradycardia, unspecified; R55 Syncope and collapse
CPT/HCPCS: 93270

== ENCOUNTER 2025-09-22 09:06 | Outpatient (CLI) | payer MEDICAID, SELFPAY ==
--- OUTSIDE RECORDS SUMMARY | 2025-09-22 09:17 | XMS_ITS | Clinical Summary ---
Author Organization [facility] Address [address] [place] [address] Phone Care Team Providers Care Cyber Security Engineer Name Role Phone Jonathon Charlotte Primary [...] ideal body weight General No Goldie Montes, INSTRUMENT TECHNICIAN APPRENTICE Care Teams Cyber Security Engineer Relationship Specialty Start Date End Date Charlotte Holt [address] [place], [place] [address] PCP - General Clinic/Center - [facility] ([facility] 04/01/19
[2025-09-22 09:42] LABS: Hematocrit 39.5 % (37.0-47.0); Hemoglobin 13.3 g/dL (12.2-16.2); Immature Granulocytes % 0.3 %; Mean Corpuscular HGB Conc 33.7 g/dL (31.8-35.4); Mean Corpuscular Hemoglobin 28.8 pg (27.0-31.2); Mean Corpuscular Volume 85.5 fl (81-99); Nucleated Red Blood Cells % 0 %; Platelet Count 197 K/mm3 (142-424); Red Blood Count 4.62 M/mm3 (4.20-5.40); Red Cell Distribution Width-SD 36.3 fL; White Blood Count 6.4 K/mm3 (4.8-10.8)
[2025-09-22 10:06] LABS: Albumin Level 4.5 g/dl (3.5-5.0)
[2025-09-22 10:07] LABS: Chloride 106 mmol/L (98-107); Potassium 4.1 mmoL/L (3.5-5.1); Sodium 144 mmol/L (136-145)
[2025-09-22 10:09] LABS: Alanine Aminotransferase 25 U/L (12-78); Anion Gap 17.1 mEq/L (5-15); Aspartate Amino Transferase 28 U/L (14-36); Bilirubin,Unconjugated 0.5 mg/dL (0.0-1.1); Blood Urea Nitrogen 14 mg/dl (7-17); Carbon Dioxide 25 mmol/L (22.0-30.0); Creatinine,Serum 0.80 mg/dl (0.52-1.04); Estimated Glomerular Filt Rate 81 ml/min (>60); GFR (African American) 98 ML/MIN (>60)
[2025-09-22 10:10] LABS: Alkaline Phosphatase 46 U/L (38-126); Bilirubin,Direct 0.0 mg/dl (0.0-0.4); Bilirubin,Indirect 0.6 mg/dL (0.0-0.9); Bilirubin,Total 0.6 mg/dl (0.2-1.3); Calcium 9.1 mg/dl (8.4-10.2); Cholesterol 171 mg/dl (140-200); Glucose 105 mg/dl (74-100); HDL Cholesterol 54 mg/dl (40-60); Magnesium 2.0 mg/dl (1.6-2.3); Total Protein,Serum 7.4 g/dl (6.3-8.2); Triglycerides 97 mg/dl (30-150)
[2025-09-22 10:25] LABS: Free T4 (Free Thyroxine) 0.85 ng/dl (0.78-2.19)
[2025-09-22 10:40] LABS: Thyroid Stimulating Hormone 1.47 uIU/mL (0.465-4.68)
[2025-09-22 10:44] LABS: 25-OH Vitamin D, Total 61.7 ng/mL (30-100)
== END 2025-09-22 23:59 | disposition home or self-care (01) ==
LOC: LAB 09:07
PROVIDERS: PCP Student in an Organized Health Care Education/Training Program; Visit Provider Internal Medicine
DX: E55.9 Vitamin D deficiency, unspecified (principal); R42 Dizziness and giddiness; R00.2 Palpitations; R06.00 Dyspnea, unspecified; Z82.49 Family history of ischemic heart disease and other diseases of the circulatory system
CPT/HCPCS: 36415; 80048; 80061; 80076; 82306; 83735; 84439; 84443; 85025

== ENCOUNTER 2025-10-02 08:53 | Outpatient (CLI) | payer MEDICAID, SELFPAY ==
[2025-10-02 08:59] VITALS: BMI 34.5
[2025-10-02 09:17] VITALS: BP 119/78; PULSE 66; RESP 16; TEMP 36.3; O2SAT 97
[2025-10-02 09:18] LABS: Urine Pregnancy, HCG Qual. Negative (Negative)
[2025-10-02 09:34] VITALS: BP 132/82; PULSE 61; RESP 18; O2SAT 99
[2025-10-02 09:37] VITALS: BP 111/68; PULSE 54; RESP 16; O2SAT 94
[2025-10-02] MEDS: SODIUM CHLORIDE 0.9% 10ML SYR (RAD ONLY) 10 ML IV (09:38)
[2025-10-02] MEDS: IOPAMIDOL-370 (76%);100ML BOTTLE 85 ML IV (09:38)
[2025-10-02] MEDS: 0.9 % SODIUM CHLORIDE 50 ML VIAL IV (09:38)
[2025-10-02 09:45] VITALS: BP 106/59; PULSE 59; RESP 16; O2SAT 97
--- NOTE | 2025-10-02 10:00 | CT_ITS ---
APPROVED REPORT Telegraph Dispatcher: CLINICAL INDICATION Chest Pain TECHNIQUE Image Acquisition: A 128 slice MDCT scanner ([employer] PhoneFusiona View) was used for data acquisition. A noncontrast coronary calcium scan was performed. A CT attenuation threshold of 130 Hounsfield units (HU) was used for the detection of calcium in contiguous voxels of 1 sq mm in area to be counted as individual lesions. Bolus tracking in the ascending aorta with a threshold of 180 HU was performed. Immediately afterwards, ECG synchronized cardiac CT was then performed from the cardiac base to apex using retrospective gating with ECG tube current modulation. A total of 85 mL of Isovue 370 mg/mL contrast medium was administered at 5 mL/sec followed by a saline flush using a biphasic injection protocol. A tube voltage of 120 KVp was used. Image Reconstruction Transaxial images were reconstructed at 0.67 mm slide thickness. Data was reviewed interactively on an advanced workstation capable of 2 and 3-dimensional displays in all conventional reconstruction formats, including multiplanar reformations, maximum intensity projections, curved multiplanar reformations, and volume rendered reconstructions. When applicable, selected routine images describing the relevant coronary anatomy and pathology were saved and sent to PACS. Complications None Technical Quality Overall image quality was good. Coronary artery opacification was adequate. Total DLP (Dose-Length Product) is 1747.3 mGy-cm. The reported value represents the total of one or more individual components during the CT acquisition of this date and at this time, and as such, the same value may appear in more than one CT report depending on the interpreting/reporting physicians. COMPARISON None FINDINGS CT Coronary Calcium Scoring LMA (Left Main Artery) = 0 LAD (Left Anterior Descending) = 0 LCX (Left Coronary Circumflex) = 0 RCA (Right Coronary Artery) = 0 Total Calcium Score = 0 using the AJ-130 method. The interpretation of the calcium heart score is based on the following continuum*: 0 = no calcified plaque detected (risk of coronary artery disease is very low ??? less than 5%) 1-10 = calcium detected in extremely minimal levels (risk of coronary diseases is still low ??? less than 10%) 11-100 = mild levels of plaque detected with certainty (mild or minimal narrowing of heart arteries is likely) 101-400 = definite,at least moderate levels of plaque detected (relatively high risk of a heart attack within 3-5 years) >401-999 = extensive levels of plaque detected (high risk of heart attack, high levels of vascular disease are present, high likelihood of at least one significant coronary narrowing) *The calcium heart score quantifies the burden of coronary calcification/plaque in the coronary arteries. The calcium heart score is not able to evaluate the presence or burden of non-calcified (i.e. soft) plaque. There is no identifiable calcification in the aortic valve, mitral annulus or mitral valve, pericardium, or myocardium. Coronary CT Angiography The coronary arterial system is left dominant. Quantitative Stenosis Grading: Left Main (LM): The left main originates normally from the left sinus of Valsalva. The LM bifurcates into the left anterior descending artery and left circumflex artery. The LM is patent with no evidence of atherosclerosis. Left Anterior Descending (LAD) and Diagonal Branches: The LAD gives off 3 diagonal branch(es). The LAD and its branches are patent with no evidence of atherosclerosis. There is no evidence of LAD-myocardial bridge. Left Circumflex (LCX) and Obtuse Marginals (OM): The LCX gives off 1 Obtuse Marginal (OM) branch(es). The LCX and its branches are patent with no evidence of atherosclerosis. Right Coronary Artery (RCA): The RCA originates normally from the right sinus of Valsalva. The RCA and its branches are patent with no evidence of atherosclerosis. Non-Coronary Cardiac Findings: Analysis of the left ventricular (LV) structure and function was performed after 3-D reconstruction of the LV from axial images, with user-corrected automatic contouring for assessment of LV volumes and user-defined reconstruction from oblique planes for measurement of 3-D cardiac structure and function. -The left ventricle systolic function is normal. -There is no left atrial appendage filling defect. Two right pulmonary veins and two left pulmonary veins drain normally into the left atrium. -No pericardial thickening or calcification. -Central and branch pulmonary arteries in the [id number] are unremarkable. -Thoracic aorta within the visualized thoracic aortic-branches in the [id number] is unremarkable. Extracardiac Structures No significant extra-cardiac findings. Note, however, that this study is focused on the cardiac findings. IMPRESSION -Absence of coronary calcification with an Agatston score = 0 using the AJ-130 method. -No evidence of significant flow-limiting atherosclerosis of the coronary arteries. -No evidence of coronary anomalies or myocardial bridging. -CAD-RADS 0. Management recommendations per ACC/AHA guidelines*, as clinically appropriate. *Recommendations: CAD RADS 0: Reassurance. Consider non-atherosclerotic causes of chest pain. CAD RADS 1: Consider non-atherosclerotic causes of chest pain. Consider preventive therapy and risk factor modification. CAD RADS 2: Consider non-atherosclerotic causes of chest pain. Consider preventive therapy and risk factor modification, particularly for patients with nonobstructive plaque in multiple segments. CAD RADS 3: Consider further functional testing. Consider symptom-guided anti-ischemic and preventive pharmacotherapy as well as risk factor modification per published guideline statements. CAD RADS 4A: Consider further functional testing or invasive coronary angiography with revascularization per published guideline statements. Consider symptom-guided anti-ischemic and preventive pharmacotherapy as well as risk factor modification per published guideline statements. CAD RADS 4B: Invasive coronary angiography recommended with revascularization per published guideline statements. Consider symptom-guided anti-ischemic and preventive pharmacotherapy as well as risk factor modification per published guideline statements. CAD RADS 5: Consider invasive angiography and/or viability assessment with revascularization per published guideline statements. Consider symptom-guided anti-ischemic and preventive pharmacotherapy as well as risk factor modification per published guideline statements. CRITICAL RESULT None COMMUNICATION Per this written report The coronary and cardiac findings of this CCTA were reviewed, reported, and signed by Pa Mckinley MD (Power Ballast Machine Operator) Conclusion Electronically signed by : Jazz Mckinley MD 10/06/2025 13:52:36
[2025-10-02] MEDS: NITROGLYCERIN 0.4MG SL TABLET SL (10:38)
--- NOTE | 2025-10-02 10:45 | CA_ITS ---
APPROVED REPORT EXAM: Comprehensive 2D, Doppler, and color-flow Echocardiogram Pluck Trimmer: Nely Charles RT(R) Ht: 5 ft 3 in Wt: 177lbs BSA: 1.84 BP: 124/67 mmHg Indications: dyspnea, palpitations Echo Enhancing Agent Indication: Rule out Shunt Agent(s) / Amount(s) Used: Agitated Saline 20 cc 2D Dimensions LVEF (Manuel's) 63.60 % F: 54 - 74 LV Volume 100.20 mL F: 46 - 106 LV Volume Index 54.5 mL/m2 F: 29 - 61 LA Volume 28.90 mL LA Volume Index 15.71 mL/m2 (M/F) 16-34 EF AP4 65.50 % EF AP2 61.9 % EF BP 63.6 % GL Strain -25.0 % M-Mode Dimensions RVDd 2.32 cm (0.9-2.6) LA Diam 3.13 cm (1.9-4.0) LVDd 4.64 cm (3.5-5.7) LVDs 3.34 cm (3.5-5.7) IVSd 0.68 cm (0.6-1.1) PWd 0.72 cm (0.6-1.1) EF (Teich) 54.30% FS 28.00% EDV (Teich) 99.30 mL ESV (Teich) 45.40 mL LV Diastology E Decel Time 203 (160-240 msec) E/A Ratio 1.8 Mitral Valve MV E Max Vlad. 90.0 (40-130 cm/s) MV A Velocity 51.0 (40-130 cm/s) E/A Ratio 1.75 MV PHT 60.0 ms Left Ventricle The left ventricle is normal size. Left ventricular systolic function is normal. The left ventricular ejection fraction is within the normal range. There is normal left ventricular wall thickness. There is normal LV segmental wall motion. The left ventricular diastolic function is normal. LVEF is 55% Right Ventricle The right ventricle is normal size. The right ventricular systolic function is normal. Atria The left atrium size is normal. The right atrium size is normal. There is no color Doppler evidence of interatrial shunt. Agitated saline administration demonstrates presence of interatrial shunt. Aortic Valve The aortic valve opens well. There is no hemodynamically significant aortic valvular stenosis. No aortic regurgitation is present. Mitral Valve The mitral valve is normal in structure. No evidence of mitral valve stenosis. Trace mitral regurgitation is present. Tricuspid Valve The tricuspid valve leaflets are thin and pliable. Trace tricuspid regurgitation. There is insufficient TR jet to estimate RVSP. Pulmonic Valve The pulmonary valve is grossly normal in structure. Trace pulmonic valve regurgitation is present. Great Vessels The aortic root is normal in size. IVC is normal in size and collapses >50% with inspiration. Pericardium There is no pericardial effusion. Other Information Study Quality: Fair Conclusion Normal biventricular systolic function. No significant valvular stenosis or regurgitation. Agitated saline administration demonstrates presence of interatrial shunt. Electronically signed by : Jazz Mckinley MD 10/06/2025 14:34:41
== END 2025-10-02 23:59 | disposition home or self-care (01) ==
LOC: RAD 08:54
PROVIDERS: PCP Student in an Organized Health Care Education/Training Program; Visit Provider Internal Medicine
DX: E55.9 Vitamin D deficiency, unspecified (principal); R42 Dizziness and giddiness; R00.2 Palpitations; Z82.49 Family history of ischemic heart disease and other diseases of the circulatory system; R06.00 Dyspnea, unspecified; R07.9 Chest pain, unspecified
CPT/HCPCS: 75574; 81025; 93306; Q9967